=== PATIENT | female | born 1980 | race Caucasian/White ===

== ENCOUNTER 2017-11-06 20:35 | Inpatient (IN) | payer OTHER, SELFPAY ==
[2017-11-06 21:05] VITALS: BMI 27.6
[2017-11-06 21:09] LABS: Hematocrit 36.8 % (37-47); Hemoglobin 12.8 g/dl (12.0-15.0); Mean Corp Hgb Conc 34.8 g/gl (32-36); Mean Corpuscular Hgb 31.4 pg (27.0-32.0); Mean Corpuscular Volume 90.4 fL (81-99); Mean Platelet Vol. 11.1 fl (6.2-12.0); Platelet Count 154 K/mm3 (150-450); RBC Distribution Width CV 14.1 % (11.6-14.6); RBC Distribution Width SD 46.4 fl (35.1-43.9); Red Blood Count 4.07 M/mm3 (4.2-5.4); Scan Indicated on CBC? Y/N NO; White Blood Count 14.4 K/mm3 (4.4-11.0)
--- NOTE | 2017-11-06 21:24 | PCM.HP.OB ---
(1) Active labor at term Status: Acute (2) Post-dates Status: Acute History Date of Admission: 11/06/17 Gestational age: 40 History of this : 37 year old female single IUP at 40w2d EGA by 12 week U/S. Presented to L&D at 2030 this evening with contractions. Contractions started early afternoon after office visit and membrane stripping. Contractions increased in strength and came to unit. Denies any headache, visual changes, chest pain, shortness of breath, vaginal bleeding or leakage of fluid. OB history: Advanced maternal age, History of 3rd degree perineal laceration Allergies No Known Allergies Allergy (Verified 12/15/15 17:46) Current Medications Acetaminophen (Tylenol) 325 - 650 mg PO Q4H PRN PRN PRN Reason: PAIN OR FEVER >100.4F Al Hydroxide/Mg Hydroxide (Mylanta Ii) 15 - 30 ml PO Q4H PRN PRN PRN Reason: INDIGESTION Citric Acid/Sodium Citrate (Bicitra) 30 ml PO UD PRN Lactated Ringer's () 1,000 mls @ 50 mls/hr IV .Q20H CHARY Nalbuphine HCl (Nubain) 5 - 10 mg IV Q3H PRN PRN PRN Reason: PAIN (4-10/10) Ondansetron HCl (Zofran) 4 mg IV Q8H PRN PRN PRN Reason: NAUSEA Promethazine HCl (Phenergan (Ll)) 6.25 - 12.5 mg IV Q4H PRN PRN; Protocol PRN Reason: IF NAUSEA PERSISTS Sodium Chloride () 5 - 15 ml IV UD CHARY Smoking Status: Never smoker Alcohol: None Drug Use: none Review of Systems Constitutional: Denies: Chills, Fever, Weight Change Cardiovascular: Denies: Chest Pain, Palpitations Respiratory: Denies: Cough, Shortness of breath at rest, Sputum production Physical Exam Vitals: PN labs: RPR negative HIV negative O positive, antibody screen negative Rubella immune HBsAG negative GC/CT negative General: Alert, Oriented x3, No apparent distress Cardiovascular: Regular rate, Regular Rhythm, Normal S1, Normal S2, No murmurs Lungs: Clear to auscultation, No rhonchi, No wheeze Abdomen: Bowel Sounds Present, Gravid Extremities:: No edema Estimated gestational size: Appropriate for gestational size Presentation: Cephalic Cervix Dilation (cm): 5 - Exam per nursing staff. Station: -1 Effacement (%): 90 - IBOW Assessment/Plan Active and Suspected Problems Active labor at term (Acute) Post-dates (Acute) FHR moderate variability, accels, no decels, Category 1. [place]: q3-4min, moderate, lasting 60-120 seconds A: Active Labor of single IUP at 40w2d Post dates P: 1) Admit to L&D, routine orders. IV saline lock. Intermittent monitoring. 2) Expectant management. Would like natural childbirth 3) notified and updated on patient status in labor. Ayah Lynne CNM
[2017-11-06] MEDS: Lactated Ringers 1,000 ML 50 ML IV (22:55)
[2017-11-07] MEDS: Oxytocin 30 units/NS 500 ml 30 UNITS/500 ML IV.SOLN 334 UNITS IV (00:07)
--- NOTE | 2017-11-07 01:17 | PCM.OB.VAG ---
(1) Active labor at term Status: Acute (2) Post-dates Status: Acute Vaginal Delivery Amniotic Membrane Rupture Type: Artificial Amniotic Fluid Description: Clear Final DONTA: 11/04/17 Final DONTA Source: US <20 weeks Gestational age: 40 Weeks and 3 Days Date of Procedure: 11/07/17 Pre-Operative Diagnosis: Active Labor Post-Operative Diagnosis: NSVC Surgery/ Procedure Performed: Spontaneous Vaginal Delivery Type of Anesthesia: Local with 1% lidocaine Description of Procedure: Progressed to complete with strong urge to push. Vaginal bleeding with pushing due to laceration. of viable male infant over 2nd degree perineal laceration unmedicated. Apgars 8,9, weight pending. placed on maternal abdomen, spontaneous cry, mouth and nares wiped with towel. Pitocin started IVPB for active 3rd stage management. Placenta delivered with maternal effort, intact, 3 vessel cord. Perineum inspected with vaginal and rectal exam. Revealed 2nd degree perineal laceration. Repaired with 3.0 vicryl x2 with 1% Lidocaine. Well approximated with sutures, hemostasis achieved. Patient tolerated well. EBL 500ml. Planning to breast feed. Mom and baby stable. Family bonding well. notified of delivery. Presentation: Vertex, ASHER Placental Delivery Description: Spontaneous Placenta Disposition: [facility] Cord Vessel Description: 3 Vessels Cord Entanglement: None Estimated Blood Loss: 500ml Infant A gender: Male (1 minute): 8 (5 minute): 9 Laceration: Perineal Extension/lac, 2nd degree Medications given after delivery: IV Pitocin
[2017-11-07] MEDS: Oxytocin 30 units/NS 500 ml 30 UNITS/500 ML IV.SOLN 167 UNITS IV (01:30)
[2017-11-07] MEDS: Naproxen 250 MG Tablet PO (01:41)
[2017-11-07] MEDS: Senna/Docusate Sodium 1 Tablet PO (01:42)
[2017-11-07 04:00] VITALS: BP 122/65; PULSE 80; RESP 18; TEMP 37.1
[2017-11-07] MEDS: Cephalexin 500 MG Capsule PO ×3 (06:15→17:46)
[2017-11-07 08:00] VITALS: BP 109/68; PULSE 82; RESP 20; TEMP 37.1; O2SAT 96
[2017-11-07 12:00] VITALS: BP 117/68; PULSE 78; RESP 18; TEMP 37.2; O2SAT 97
--- NOTE | 2017-11-07 12:16 | PCM.PN.OB ---
Patient Problems: Active and Suspected Problems Active labor at term (Acute) Post-dates (Acute) Subjective: pt seen at bedside, doing well. pt reports good pain control. lochia mild. Urinating without difficulty. Breast feeding well. - Physical Exam General: Alert, Oriented x3 Abdomen: Soft, Non Tender, Non-Distended, - - fundus firm Extremities: No Calf Tenderness Vital Signs Temp Pulse Resp BP Pulse Ox 98.9 F 78 18 117/68 97 11/07/17 12:00 11/07/17 12:00 11/07/17 12:00 11/07/17 12:00 11/07/17 12:00 Oxygen Delivery Method Room Air Weight: 82.554 kg Body Mass Index (BMI) 27.6 Intake and Output for Last 24 Hours 11/05/17 11/06/17 11/07/17 23:59 23:59 23:59 Intake Total 1700 / 1700 Output Total 150 / 150 700 / 700 Balance -150 / -150 1000 / 1000 Laboratory Tests Past 24 Hrs 11/06/17 11/06/17 20:54 20:54 WBC 14.4 H RBC 4.07 L Hgb 12.8 Hct 36.8 L MCV 90.4 MCH 31.4 MCHC 34.8 RDW 14.1 RDW Differential 46.4 H Plt Count 154 MPV 11.1 Blood Type O POSITIVE Antibody Screen NEGATIVE Assessment/Plan Active and Suspected Problems Active labor at term (Acute) Post-dates (Acute) PPD#1, doing well routine care pain mgmt
[2017-11-07 14:54] LABS: Absolute Lymphocyte Count 1.59 X10^3/ul (0.83-4.51); Absolute Neutrophil Count 12.3 X10^3/uL (2.0-7.7); Basophil# 0.01 X10^3/uL; Basophil% 0.1 % (0-1); Eosinophil# 0.01 X10^3/uL; Eosinophils% 0.1 % (0-5); Hematocrit 26.7 % (37-47); Hemoglobin 9.4 g/dl (12.0-15.0); Lymphocyte # 1.59 X10^3/ul (4.0); Lymphocyte % 10.6 % (19-41); Mean Corp Hgb Conc 35.2 g/gl (32-36); Mean Corpuscular Hgb 32.3 pg (27.0-32.0); Mean Corpuscular Volume 91.8 fL (81-99); Mean Platelet Vol. 11.4 fl (6.2-12.0); Monocyte# 0.98 X10^3/uL; Monocyte% 6.6 % (0-10); Neutrophil # 12.31 X10^3/uL (2.7-7.7); Neutrophil % 82.2 % (47-70); Platelet Count 149 K/mm3 (150-450); RBC Distribution Width CV 13.9 % (11.6-14.6); RBC Distribution Width SD 44.3 fl (35.1-43.9); Red Blood Count 2.91 M/mm3 (4.2-5.4)
[2017-11-07 14:55] LABS: POSITIVE COUNT NO; POSITIVE DIFFERENTIAL NO; POSITIVE MORPHOLOGY NO
[2017-11-07 16:00] VITALS: BP 115/67; PULSE 89; RESP 14; TEMP 37.1; O2SAT 97
[2017-11-07 20:59] VITALS: BP 126/61; PULSE 78; RESP 18; TEMP 36.7
[2017-11-08] MEDS: Cephalexin 500 MG Capsule PO ×2 (00:32→06:07)
[2017-11-08 02:20] VITALS: BP 107/70; PULSE 96; RESP 18; TEMP 36.4
--- NOTE | 2017-11-08 09:00 | DCINST_ITS ---
Discharge Diet: No Restrictions Discharge Activity: Return to Normal Activity, May not drive while taking narcotic pain medications., May Shower May resume sexual activity in: 4-6 weeks Additional Activity Instructions:: Nothing in the vagina for 4-6 weeks. You may return to work/school in 6 weeks. Call your doctor if your incision/area has: Continuous Slow Oozing, Sudden Increased Bleeding, Increased Pain/ Swelling, Increased Redness, Foul Smelling Discharge Call your doctor if you observe: Fever of 101 or Higher, Inability to urinate, Inability to have a bowel movement, Using more than one pad per hour, Uncontrolled pain Additional Instructions: If you experience any of the following, contact your healthcare provider. * Bleeding that soaks a pad every hour for 2 hours * Fever 100.4 or higher * Unrelieved incision or abdominal pain * Swelling, redness, discharge or bleeding from your incision or episiotomy site * Your incision begins to separate * Problems urinating (including inability to urinate or burning while urinating) . * Visual changes * Severe headache * Flu-like symptoms * Pain or redness in one of both of your breasts * Pain, warmth, tenderness or swelling in your legs, especially the calf area * Frequent nausea and vomiting * Symptoms of depression or anxiety If you experience any of the following, call 911 or go to the nearest Emergency Room. * Chest pain * Problems breathing * Seizure activity * Partial or complete paralysis of a body part, slurred speech, weakness or drooping of the face, or a sudden inability to walk or hold your balance Allergies/Adverse Reactions: Allergies No Known Allergies Allergy (Verified 11/07/17 01:19) Medications to take at Discharge Vits [Prenatabs FA ] 1 tablet PO DAILY 12/15/15 Cephalexin [Keflex] 500 mg PO 4X/DAY 11/07/17 Acetaminophen [Tylenol] 1,000 mg PO Q8H PRN PRN tablet 11/08/17 Naproxen [Naprosyn] 250 - 500 mg PO Q8H PRN PRN tablet 11/08/17 Senna/Docusate Sodium [Senokot-S] 1 - 2 tablet PO DAILY PRN PRN tablet When: Call to make an appointment with your doctor in 6 weeks. If you had elevated Blood Pressure or 4th degree laceration you will need to be seen in 2 weeks. Primary Care Physician: Care Physician,No Primary [Primary Care Provider] -
--- NOTE | 2017-11-08 09:00 | PCM.PN.BLA ---
Progress Note S: Patient sitting up in bed, and son at bedside doing [id number]. Patient denies any complaints or issues. O: VSS, Afebrile Nipples without cracks or blisters, no erythema noted Abdomen NT x 4 quadrants, FF @ 2FB below umbilicus +2/4 reflexes in LE, no edema negative calf tenderness to palpation perineum well approximated scant rubra lochia A: 37 y/o s/p , PPD #1, Normal PP Course P: 1) Discharge patient to home pending discharge 2) Anticipatory health PP teaching done 3) RTC in 6 weeks for PP visit with [facility] Brielle Valdez CNM
--- NOTE | 2017-11-08 09:04 | PN_ITS ---
Progress Note S: Patient sitting up in bed, and son at bedside doing skin-to- skin. Patient denies any complaints or issues. O: VSS, Afebrile Nipples without cracks or blisters, no erythema noted Abdomen NT x 4 quadrants, FF @ 2FB below umbilicus +2/4 reflexes in LE, no edema negative calf tenderness to palpation perineum well approximated scant rubra lochia A: 37 y/o s/p , PPD #1, Normal PP Course P: 1) Discharge patient to home pending discharge 2) Anticipatory health PP teaching done 3) RTC in 6 weeks for PP visit with [facility] Brielle Valdez CNM
[2017-11-08 11:00] VITALS: BP 116/72; PULSE 83; RESP 18; TEMP 36.7
== END 2017-11-08 11:00 | disposition home or self-care (01) | DRG 775 ==
PROVIDERS: Advanced Practice Midwife; Admitting Provider Obstetrics & Gynecology; Visit Provider Obstetrics & Gynecology
DX: O70.1 Second degree perineal laceration during delivery (principal); O48.0 Post-term pregnancy; Z3A.40 40 weeks gestation of pregnancy; Z37.0 Single live birth
CPT/HCPCS: 59025; 59050; 85025; 85027; 86850; 86900; 99218; J7120; G0378

== ENCOUNTER 2020-06-14 07:10 | Inpatient (IN) | payer OTHER, SELFPAY ==
[2020-06-14] VITALS (21 sets, daily range): BP systolic 92–147; BP diastolic 51–77; PULSE 63–97; TEMP 36.6–37.1; O2SAT 98–100; BMI 27.4
[2020-06-14] MEDS: Lactated Ringers 1,000 ML 50 ML IV (08:19)
[2020-06-14] MEDS: Oxytocin 30 units/NS 500 ml 30 UNITS/500 ML IV.SOLN IV (08:20)
[2020-06-14 08:35] LABS: Absolute Lymphocyte Count 1.24 X10^3/uL (0.83-4.51); Absolute Neutrophil Count 5.8 X10^3/uL (2.0-7.7); Basophil# 0.02 X10^3/uL; Basophil% 0.3 % (0-1); Eosinophil# 0.04 X10^3/uL; Eosinophils% 0.5 % (0-5); Hematocrit 32.1 % (37-47); Hemoglobin 10.9 g/dL (12.0-15.0); Lymphocyte # 1.24 X10^3/ul (4.0); Lymphocyte % 16.4 % (19-41); Mean Corpuscular Volume 91.2 fL (81-99); Mean Platelet Vol. 11.4 fl (6.2-12.0); Monocyte% 5.3 % (0-10); NRBC Flagged by Analyzer 0 % (0-5); Neutrophil # 5.83 X10^3/uL (2.7-7.7); Neutrophil % 77.1 % (47-70); Platelet Count 150 K/mm3 (150-450); RBC Distribution Width CV 14.7 % (11.6-14.6); RBC Distribution Width SD 48.3 fl (35.1-43.9); Red Blood Count 3.52 M/mm3 (4.2-5.4); White Blood Count 7.6 K/mm3 (4.4-11.0)
[2020-06-14] MEDS: Lactated Ringers 500 ML 999 ML IV (12:50)
--- NOTE | 2020-06-14 14:45 | PCM.HP.OB ---
- Problem List (1) Advanced maternal age (AMA), 40 years or greater Status: Acute (2) Encounter for induction of labor Status: Acute (3) Positive GBS test Status: Acute History Date of Admission: 11/06/17 Final DONTA: 06/21/20 Final DONTA Source: US <20 weeks Gestational age: 39 Weeks and 0 Days History of this : This is a 40 year-old, G [3], P [2003], at 39 weeks gestational age. Presents for induction of labor due to AMA. Allergies No Known Allergies Allergy (Verified 11/07/17 01:19) Home Medications: Home Medications Vits [Prenatabs FA ] 1 tablet PO DAILY 12/15/15 Cephalexin [Keflex] 500 mg PO 4X/DAY 11/07/17 Acetaminophen [Tylenol] 1,000 mg PO Q8H PRN PRN tablet 11/08/17 Naproxen [Naprosyn] 250 - 500 mg PO Q8H PRN PRN tablet 11/08/17 Senna/Docusate Sodium [Senokot-S] 1 - 2 tablet PO DAILY PRN PRN tablet 11/08/17 Smoking Status: Never smoker Alcohol: None Number of Fetus(es): 1 NST - FHR Rate Baby A Baseline: 145 Variability:: Moderate Accelerations:: 15 x 15 Decelerations:: None FHR Category:: Category I Uterine Activity:: every 2-4 minutes, moderate History Past Pregnancies: Past Pregnancies Delivery Date Name GA/ Weeks Outcome Route Wt Infant Sex Labor Length Anesthesia Delivery Location Provider FOB Labs: [facility] Labs & Results 06/14/20 06/14/20 08:00 08:00 WBC 7.6 RBC 3.52 L Hgb 10.9 L Hct 32.1 L MCV 91.2 MCH 31.0 MCHC 34.0 RDW Std Deviation 48.3 H RDW Coeff of Molina 14.7 H Plt Count 150 MPV 11.4 Immature Gran % (Auto) 0.400 Neut % (Auto) 77.1 H Lymph % (Auto) 16.4 L [place] % (Auto) 5.3 Eos % (Auto) 0.5 Baso % (Auto) 0.3 Absolute Neuts (auto) 5.8 Absolute Lymphs (auto) 1.24 Nucleated RBC % 0 Blood Type O POSITIVE Antibody Screen NEGATIVE Course Did the patient receive Yes care? Labs Blood Type: O RH: POSITIVE RPR/VDRL/Syphilis Nonreactive Rubella status Immune HbSAg Negative Date Done: 03/27/20 Chlamydia Negative Gonorrhea Negative HIV/AIDS Non-Reactive Group B Strep: Positive Current Obstetrical History Gestational Diabetes No Incompetent Cervix No Infertility No IUGR No Macrosomia No Hypertension/Pre-eclampsia No Placenta Previa/Abruption No PTL/PROM No Uterine anomaly No Oligohydramnios No Polyhydramnios No Multiple gestation No Past Medical History Asthma No Diabetes No Heart disease No Mitral valve prolapse No Neurologic/Seizure disorder/ No Migraines Kidney disease No Liver disease No Varicosities No Clotting disorders/Hx of DVT No Thyroid Dysfunction No Other medical diseases No Psychiatric disorders No Major trauma No Abnormal PAP smear No Sleep apnea No Mammogram in the last 2 years No Social History Marital Status: Alleged father Wes Curry Hx Smoking No Smoking Status Never smoker Expected Infant Delivery Method: Spontaneous Vaginal Review of Systems Constitutional: Denies: Chills, Fever, Weight Change HEENT: Denies: Head Aches, Sinus Congestion, Sinus Drainage Cardiovascular: Denies: Chest Pain, Palpitations Respiratory: Denies: Cough, Shortness of breath at rest, Sputum production Gastrointestinal: Denies: Abdominal Pain, Nausea, Vomiting Genitourinary: Denies: Dysuria Musculoskeletal: Denies: Joint Pain, Joint Tenderness Skin: Denies: Rash, Wounds Neurological: Denies: Numbness, Tingling, Focal weakness Psychiatric: Denies: Anxiety, Depression, Homicidal Ideations, Suicidal Ideations Hematologic/ Lymphatic: Denies: Easy Bruising, Easy Bleeding Physical Exam Vitals: Vital Signs Temp Pulse BP 98.7 F 67 147/68 H 06/14/20 07:33 06/14/20 14:15 06/14/20 14:15 General: Alert, Oriented x3, Cooperative HEENT: Normocephalic Cardiovascular: Regular rate, Regular Rhythm, No murmurs Lungs: Clear to auscultation, Normal air movement, No rhonchi, No wheeze Abdomen: Gravid Extremities:: No edema Neurological: Deep Tendon Reflexes 2+/4 and Symmetrical [employer]: Normal external genitalia Estimated gestational size: Appropriate for gestational size Presentation: Cephalic Cervix Dilation (cm): 4.5 - AROM for moderate amount of clear fluid. Station: -1 Effacement (%): 80 Assessment/Plan All Active Problems Advanced maternal age (AMA), 40 years or greater (Acute) Encounter for induction of labor (Acute) Positive GBS test (Acute) Post-dates (Acute) Active labor at term (Acute) This is a 40 year-old, G [3], P [2003], at 39 weeks gestational age. A:Induction of labor for AMA Category 1 FHT P: 1) Admit to labor and delivery 2) IV and routine labs. 3) Pitocin for induction of labor 4) Requesting unmedicated , offered bedside labor support. Positional changes 5) AROM 6) GBS positive, GBS prophylaxis 7) collaborative physician and notified of patient status.
[2020-06-14] MEDS: Oxytocin 30 units/NS 500 ml 30 UNITS/500 ML IV.SOLN 334 UNITS IV (17:18)
--- NOTE | 2020-06-14 17:45 | PCM.OPRPT ---
Problem List (1) Advanced maternal age (AMA), 40 years or greater Status: Acute (2) Encounter for induction of labor Status: Acute (3) Positive GBS test Status: Acute (4) Vaginal delivery Status: Acute (5) Second degree perineal laceration Status: Acute Vaginal Delivery Maternal Presentation: Medically Indicated Induction Method of Induction: Pitocin Medical Reason for Induction: - - AMA Amniotic Membrane Rupture Type: Spontaneous Amniotic Fluid Description: Clear Final DONTA: 06/21/20 Final DONTA Source: US <20 weeks Gestational age: 39 Weeks and 0 Days Date of Procedure: 06/14/20 Pre-Operative Diagnosis: Induction of Labor for AMA Post-Operative Diagnosis: Surgery/ Procedure Performed: Spontaneous Vaginal Delivery Type of Anesthesia: Epidural, Local with 1% lidocaine Description of Procedure: Progressed to complete with urge to push after epidural placement. of viable male over 2nd degree perineal laceration. APGARS 8, 9, weight pending. head delivered with body forthcoming and placed on maternal abdomen. Mouth and nares suctioned for secretions, strong cry. Cord clamped and cut after pulsations ceased by FOB. Pitocin started for active 3rd stage management. Placenta delivered intact via nishi with 3 vessel cord. Perineum inspected and revealed 2nd degree perineal laceration. Repaired under epidural analgesia and lidocaine with 3.0 vicryl rapide. Well approximated and hemostasis achieved. Rectal exam completed and intact. Fundus firm, vaginal sweep completed and sponge and instrument count correct. EBL 400ml. Mom and baby stable. Planning to breastfeed. Family bonding well. notified of delivery. Presentation: Vertex Placental Delivery Description: Spontaneous Placenta Disposition: [facility] Cord Vessel Description: 3 Vessels Cord Entanglement: None Estimated Blood Loss: 400 ml A gender: Male (1 minute): 8 (5 minute): 9 Episiotomy Description: None Laceration: 2nd degree - perineal laceration Medications given after delivery: IV Pitocin Complications: None
[2020-06-14] MEDS: Ibuprofen 600 MG Tablet PO (18:39)
[2020-06-15 00:30] VITALS: BP 106/55; PULSE 74; RESP 16; TEMP 36.4
[2020-06-15 03:25] VITALS: BP 121/49; PULSE 71; RESP 16; TEMP 37.2
[2020-06-15] MEDS: Ibuprofen 600 MG Tablet PO ×2 (03:38→09:50)
[2020-06-15 06:08] LABS: Hematocrit 26.6 % (37-47); Mean Corp Hgb Conc 33.8 g/dL (32-36); Mean Corpuscular Hgb 31.3 pg (27.0-32.0); Mean Corpuscular Volume 92.4 fL (81-99); Mean Platelet Vol. 11.3 fl (6.2-12.0); Platelet Count 112 K/mm3 (150-450); RBC Distribution Width CV 14.6 % (11.6-14.6); RBC Distribution Width SD 48.3 fl (35.1-43.9); Red Blood Count 2.88 M/mm3 (4.2-5.4); White Blood Count 9.1 K/mm3 (4.4-11.0)
--- NOTE | 2020-06-15 08:48 | PCM.PN.OB ---
Patient Problems: Active and Suspected Problems Advanced maternal age (AMA), 40 years or greater (Acute) Encounter for induction of labor (Acute) Positive GBS test (Acute) Vaginal delivery (Acute) Second degree perineal laceration (Acute) Subjective: Pain well controlled, average lochia. No complaints this morning - Physical Exam Vitals/I&O's: Vital Signs Temp Pulse Resp BP Pulse Ox 98.9 F 71 16 121/49 H 98 06/15/20 03:25 06/15/20 03:25 06/15/20 03:25 06/15/20 03:25 06/14/20 19:27 Oxygen Delivery Method Room Air Weight: 81.817 kg Body Mass Index (BMI) 27.4 Intake and Output for Last 24 Hours 06/13/20 06/14/20 06/15/20 23:59 23:59 23:59 Intake Total 1619.44 / 1619.44 Output Total 200 / 200 Balance 1419.44 / 1419.44 General: Alert, Cooperative, No apparent distress Laboratory Results 06/14/20 08:00: Blood Type O POSITIVE, Antibody Screen NEGATIVE 06/15/20 05:50: WBC 9.1, RBC 2.88 L, Hgb 9.0 L, Hct 26.6 L, MCV 92.4, MCH 31.3, MCHC 33.8, RDW Std Deviation 48.3 H, RDW Coeff of Molina 14.6, Plt Count 112 L, MPV 11.3 Current Medications Acetaminophen (Tylenol) 1,000 mg PO Q8H PRN PRN PRN Reason: Pain Score 1-3/10 Bisacodyl (Dulcolax) 10 mg RECTAL UD PRN PRN Reason: If no BM Dibucaine (Dibucaine) 1 applic TOPICAL TID PRN PRN; Protocol PRN Reason: Discomfort Hydrocortisone (Hytone) 1 applic TOPICAL TID PRN PRN; Protocol PRN Reason: Discomfort Ibuprofen (Motrin) 600 mg PO Q6H PRN PRN PRN Reason: Pain Score 1-3/10 Last Admin: 06/15/20 03:38 Dose: 600 mg Documented by: Methylergonovine Maleate (Methergine) 0.2 mg IM X1 PRN PRN Reason: Excess bleeding/uterine atony Ondansetron HCl (Zofran) 4 mg IV Q4H PRN PRN PRN Reason: Nausea Senna/Docusate Sodium (Senokot-S, Candace-Colace) 1 - 2 tablet PO DAILY PRN PRN PRN Reason: Constipation Simethicone (Mylicon) 80 mg PO PCHS PRN PRN Reason: Indigestion/Stomach pain Sodium Chloride () 5 - 15 ml IV UD PRN PRN Reason: SALINE FLUSH Medical Necessity - Tobacco Use Smoking Status: Never smoker Assessment/Plan All Active Problems Advanced maternal age (AMA), 40 years or greater (Acute) Encounter for induction of labor (Acute) Positive GBS test (Acute) Vaginal delivery (Acute) Second degree perineal laceration (Acute) Post-dates (Acute) Active labor at term (Acute) day #1 status post vaginal delivery. and patient are doing well. Patient desires discharge home later this evening if okay with pediatrics. Declines prescriptions. May use [id number] medications as needed for pain control
--- NOTE | 2020-06-15 08:49 | DCINST_ITS ---
Discharge Diet: No Restrictions Discharge Activity: Return to Normal Activity, May not drive while taking narcotic pain medications., May Shower May resume sexual activity in: 4-6 weeks Additional Activity Instructions:: Nothing in the vagina for 4-6 weeks. You may return to work/school in 6 weeks. Call your doctor if your incision/area has: Continuous Slow Oozing, Sudden Increased Bleeding, Increased Pain/ Swelling, Increased Redness, Foul Smelling Discharge Additional Instructions: If you experience any of the following, contact your healthcare provider. * Bleeding that soaks a pad every hour for 2 hours * Fever 100.4 or higher * Unrelieved incision or abdominal pain * Swelling, redness, discharge or bleeding from your incision or episiotomy site * Your incision begins to separate * Problems urinating (including inability to urinate or burning while urinating). * Visual changes * Severe headache * Flu-like symptoms * Pain or redness in one of both of your breasts * Pain, warmth, tenderness or swelling in your legs, especially the calf area * Frequent nausea and vomiting * Symptoms of depression or anxiety If you experience any of the following, call 911 or go to the nearest Emergency Room. * Chest pain * Problems breathing * Seizure activity * Partial or complete paralysis of a body part, slurred speech, weakness or drooping of the face, or a sudden inability to walk or hold your balance Allergies/Adverse Reactions: Allergies No Known Allergies Allergy (Verified 11/07/17 01:19) Medications to take at Discharge Vits [Prenatabs FA ] 1 tablet PO DAILY 12/15/15 Please Follow Up With: Ayah Lynne, [facility] - [phone] When: Call to make an appointment with your provider's office in 1-2 weeks (virtual) and 6 weeks or as needed Primary Care Physician: Care Physician,No Primary [Primary Care Provider] - Test Results: Test results from this visit will be discussed in further detail at your follow- up appointment, if applicable.
--- NOTE | 2020-06-15 08:49 | PCM.DCVAG ---
Discharge Diet: No Restrictions Discharge Activity: Return to Normal Activity, May not drive while taking narcotic pain medications., May Shower May resume sexual activity in: 4-6 weeks Additional Activity Instructions:: Nothing in the vagina for 4-6 weeks. You may return to work/school in 6 weeks. Call your doctor if your incision/area has: Continuous Slow Oozing, Sudden Increased Bleeding, Increased Pain/ Swelling, Increased Redness, Foul Smelling Discharge Additional Instructions: If you experience any of the following, contact your healthcare provider. Bleeding that soaks a pad every hour for 2 hours Fever 100.4 or higher Unrelieved incision or abdominal pain Swelling, redness, discharge or bleeding from your incision or episiotomy site Your incision begins to separate Problems urinating (including inability to urinate or burning while urinating). Visual changes Severe headache Flu-like symptoms Pain or redness in one of both of your breasts Pain, warmth, tenderness or swelling in your legs, especially the calf area Frequent nausea and vomiting Symptoms of depression or anxiety If you experience any of the following, call 911 or go to the nearest Emergency Room. Chest pain Problems breathing Seizure activity Partial or complete paralysis of a body part, slurred speech, weakness or drooping of the face, or a sudden inability to walk or hold your balance Allergies/Adverse Reactions: Allergies No Known Allergies Allergy (Verified 11/07/17 01:19) Medications to take at Discharge Vits [Prenatabs FA ] 1 tablet PO DAILY 12/15/15 Please Follow Up With: Ayha Lynne, [facility] - [phone] When: Call to make an appointment with your provider's office in 1-2 weeks (virtual) and 6 weeks or as needed Primary Care Physician: Care Physician,No Primary [Primary Care Provider] - Test Results: Test results from this visit will be discussed in further detail at your follow-up appointment, if applicable.
[2020-06-15 09:32] VITALS: BP 125/72; PULSE 78; RESP 16; TEMP 37.8
[2020-06-15 10:30] VITALS: TEMP 36.6
[2020-06-15 13:20] VITALS: BP 119/72; PULSE 80; RESP 16; TEMP 37.3
[2020-06-15 17:20] VITALS: BP 128/66; PULSE 79; RESP 16; TEMP 37
== END 2020-06-15 19:38 | disposition home or self-care (01) | DRG 806 ==
PROVIDERS: Admitting Provider Advanced Practice Midwife; Visit Provider Advanced Practice Midwife
DX: O75.9 Complication of labor and delivery, unspecified (principal); O98.82 Other maternal infectious and parasitic diseases complicating childbirth; Z37.0 Single live birth; O70.1 Second degree perineal laceration during delivery; B95.1 Streptococcus, group B, as the cause of diseases classified elsewhere; Z3A.39 39 weeks gestation of pregnancy
CPT/HCPCS: 59025; 59050; 85025; 85027; 86850; 86900; 86901; 99218; J7120; G0378

== ENCOUNTER 2025-04-15 07:27 | Day surgery (SDC) | payer BC, SELFPAY ==
[2025-04-15] VITALS (9 sets, daily range): BP systolic 95–132; BP diastolic 59–73; PULSE 53–88; RESP 16–18; TEMP 36.8–37.6; O2SAT 98–99; BMI 26.4
--- OUTSIDE RECORDS SUMMARY | 2025-04-15 07:50 | XMS RPT_ITS | CCD ---
Author Organization [facility] Care Team Providers Care Air Compressor Operator Name Role Phone Unavailable Primary Care Provider JOANNA Herzog Attending Unavailable JORGE, DR. JOANNA ROQUE Primary Care Physician DR. JOANNA PATEL Attending DR. JOANNA Tirado Primary Care UnavailHubert Vazquez Attending Unavailable Care Physician, No Primary Referring Unava ilable Care Physician, No Primary Primary Care Unava ilable Allergies Allergy Classification Reported Allergen(s) Allergy Type Date of Onset Reaction(s) Facility (2 sources) Cat; Translations: [CATS] Propensity to adverse reactions 04-14-2008 Itching [facility] Work Phone: Medications Current Medications Medication Drug Class(es) Dates Sig (Normalized) Sig (Original) diaphragms, contoured (CAYA CONTOURED) 65-80 mm dprh (2 sources) Start: 05-03-2024 diaphragms, contoured (CAYA CONTOURED) 65-80 mm dprh Use 1 Device vaginally as needed. 1 Each 0 05/03/2024 Active Start: 09-29-2020 End: 05-03-2024 diaphragms, contoured (CAYA CONTOURED) 65-80 mm dprh Use 1 Device vaginally as needed. 1 Device 0 09/29/2020 05/03/2024 Discontinued Zspiltmi-Hd-Uqi-Fe- FA ( VITAMIN) tab (1 source) take 1 tablet by mouth once Pvmuohub-Bw-Age-Fe-FA ( VITAMIN) tab Take 1 tablet by mouth. 0 Active Problems Active Problems Problem Classification Problem Date Documented Date Episodic/Chronic Immunizations and screening for infectious disease (4 sources) Patient encounter status; Translations: [Encounter for screening for human papillomavirus (HPV)] Onset: 05-03-2024 4 Episodic Other screening for suspected conditions (not mental disorders or infectious disease) (5 sources) Cancer cervix screening status; Translations: [Encounter for screening for malignant neoplasm of cervix] Onset: 05-03-2024 05-03-2024 Episodic Past or Other Problems Problem Classification Problem Date Documented Da te Episodic/Chronic Anal and rectal conditions (1 source) Anal fistula; Translations: [Anal fistula] Onset: 12-06-2018 11-22-2019 Episodic Bacterial infection; unspecified site (1 source) Bacteria present; Translations: [Streptococcus, group B, as the cause of diseases classified elsewhere] Onset: 06-01-2020 Resolved: 07-27-2020 07-27-2020 Episodic Diabetes or abnormal glucose tolerance complicating ; childbirth; or the puerperium (1 source) Abnormal glucose level; Translations: [Abnormal glucose complicating ] Onset: 03-30-2020 Resolved: 07-27-2020 07-27-2020 Episodic OB-related trauma to perineum and vulva (1 source) Third degree perineal laceration; Translations: [Third degree perineal laceration during delivery, unspecified] Onset: 04-20-2017 Resolved: 11-22-2019 11-22-2019 Episodic Other and unspecified benign neoplasm (1 source) Benign neoplasm, unspecified site; Translations: [Benign neoplasm of unspecified site] Onset: 07-10-2018 11-22-2019 Episodic Other complications of (2 sources) Multigravida of advanced maternal age; Translations: [Supervision of elderly multigravida, unspecified trimester] Onset: 05-13-2015 Resolved: 07-27-2020 12-06-2018 Episodic Other complications of (2 sources) High risk ; Translations: [Supervision of high risk , unspecified, second trimester] Onset: 07-08-2015 Resolved: 01-20-2016 10-11-2021 Episodic Other complications of (1 source) Elderly primigravida; Translations: [Supervision of elderly primigravida, unspecified trimester] Onset: 11-04-2015 Resolved: 01-20-2016 01-20-2016 Episodic Other complications of (1 source) Excessive weight gain in , third trimester; Translations: [Edema or excessive weight gain in , without mention of hypertension, antepartum condition or complication] Onset: 10-30-2017 Resolved: 11-22-2019 11-22-2019 Episodic Other complications of (1 source) Finding of pattern of ; Translations: [Supervision of other high risk pregnancies, unspecified trimester] Onset: 12-06-2018 Resolved: 11-22-2019 11-22-2019 Episodic Other complications of (1 source) History of third degree perineal laceration; Translations: [Supervision of with other poor reproductive or obstetric history, unspecified trimester] Onset: 12-06-2018 Resolved: 07-27-2020 07-27-2020 Episodic Other connective tissue disease (1 source) Pain in limb; Translations: [Pain in unspecified limb] Onset: 04-14-2008 Resolved: 10-21-2015 10-21-2015 Episodic Residual codes; unclassified (1 source) FH: Congenital anomaly; Translations: [Family history of other congenital malformations, deformations and chromosomal abnormalities] Onset: 04-20-2017 Resolved: 07-27-2020 07-27-2020 Episodic Superficial injury; contusion (1 source) Contusion of foot; Translations: [Contusion of unspecified foot, initial encounter] Onset: 04-14-2008 Resolved: 10-21-2015 10-21-2015 Episodic Results Test Name Value Interpretation Reference Range Facil ity MA MAMMOGRAM SCREENING BILAT ERAL W/TOMOon 02-25-2025 MA MAMMOGRAM SCREENING BILATERAL W/MADHURI ORIGINAL FROM: [place] [address] PROCEDURE FOR: CLAUDIA ANGELES [address] [place] [address] Home: PID#: [id number] Exam#: [id number] : 1980 Age: 44 TO: JOANNA PATEL NP [facility], [place] [phone] EXAMINATION: SCREENING DIGITAL BILATERAL MAMMOGRAM WITH TOMOSYNTHESIS, 02/19/2025 11:25 am TECHNIQUE: Screening mammography of the bilateral breasts was performed with tomosynthesis. 2D standard and 3D tomosynthesis combination imaging performed through both breasts in the MLO and CC projection. Computer aided detection was utilized in the interpretation of this exam. COMPARISON: None. Baseline exam. HISTORY: Breast cancer screening. FINDINGS: BREAST DENSITY: There are scattered areas of fibroglandular density. There is no suspicious mass, architectural distortion or microcalcification. Fibroglandular pattern is stable. IMPRESSION: No mammographic evidence of malignancy. Continued screening with annual mammograms is recommended. Gilbert Sanchez risk calculations, generated with the history provided, report this patient's 10 year risk and lifetime risk for developing breast cancer at 3.1% and 16.6%, respectively. Based on this assessment tool, if the patient's calculated lifetime risk is below 20%, then the patient is considered at average risk for developing breast cancer. If the patient's calculated lifetime risk is at or above 20%, then the patient is considered high risk for developing breast cancer and may be a candidate for supplemental breast MRI screening in addition to annual mammographic screening per the [place] [employer]. BIRADS: MAMMOGRAM BI-RADS: 1: Negative RECALL: 1 year screening RECALL TYPE: mammo LETTER SENT: Normal BI-RADS 1 and 2 Interpreted by: Jaclyn Brooks Preliminary Report By: Jaclyn Brooks Electronically signed By Jaclyn Brooks Dictated Date: 02/25/2025 3:37:40 PM Prelim Date: 02/25/2025 3:39:14 PM Sign Date: 02/25/2025 3:39:14 PM Ordering Provider: JOANNA PATEL Waterproofer Helper: KAITLYNN TABARES(José Luis)(M)(CT) letter sent: Normal BI-RADS 1 and 2 Mammogram BI-RADS: 1 Negative Normal [facility] CNOVon 05-03-2024 CNOV Office Visit (OBGYWM ) CLAUDIA REYNOSO ([id number]) 1980 F Date Time Provider Department 05/03/24 3:10 PM JOANNA PATEL OBQUENTIN During your visit today, we recorded the following information about you: Blood pressure Weight Height Last Period 112 81.2 kg 1.727 m 04/29/24 Joanna Patel MD 05/03/2024 3:50 PM Signed Claudia is a 44 year old who presents for an annual gynecologic exam without complaints. Menses: cycles every 28-30 days and 7 days of flow. Will occasionally skip a month. 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 History Comments: Sexual Activity: Yes; Male Contraception: Diaphragm PAST MEDICAL HISTORY Diagnosis Date Cystic fibrosis screening 2014 neg antepartum CF screen fracture 5 fractured tibia, playground accident(pt unsure which leg) PAST SURGICAL HISTORY Procedure Laterality Date FISTULECTOMY/FISTULOTO MY SUBMUSCULAR 08/08/2018 anal fistulectomy w/seton drain FISTULECTOMY/FISTULOTO MY SUBMUSCULAR 03/06/2019 FISTULECTOMY/FISTULOTO MY SUBMUSCULAR 05/29/2019 RPR 1ST INGUN HRNA AGE 5 YRS/> REDUCIBLE 1989 Hernia repair, inguinal, right FAMILY HISTORY Problem Relation Age of Onset Arthritis Mother Hypertension Father Ischemic Heart Disease Father other (borderline DM2) Father No Known Problems Sister No Known Problems Brother Alzheimer's Disease Maternal Grandmother Stroke Maternal Grandfather Arthritis Paternal Grandmother Heart Paternal Grandfather No Known Problems Son No Known Problems Son SOCIAL HISTORY Social History Tobacco Use Smoking status: Never Smokeless tobacco: Never Vaping Use Vaping Use: Never used Substance Use Topics Alcohol use: Yes Alcohol/week: 2.3 standard drinks of alcohol Types: 1 Cans of Beer (12oz), 1 Mixed Drinks per week Comment: 2-3 drinks a week, not while Drug use: No REVIEW OF SYSTEMS Abdomen: No abdominal pain, nausea, vomiting, diarrhea, or constipation. No bloating, early satiety, indigestion, or increased flatulence. Bladder: No dysuria, gross hematuria, urinary frequency, urinary urgency, or incontinence. Breast: No breast lumps, nipple d/c, overlying skin changes, redness or skin retraction. Allergies and current medication updated:Yes EXAM: BP 112/70 Ht 5' 8 (1.73m) Wt 179 lb (81.2kg) LMP 04/29/2024 BMI 27.22 kg/(m2). GENERAL: pleasant, female in no apparent distress BREAST: soft, non-tender, symmetric, no dominant mass, normal nipple-areolar complex, no lymphadenopathy, and no nipple discharge CHEST: Normal inspiratory effort ABDOMEN: soft, non-tender, and no masses PELVIC: external genitalia normal, normal Bartholin's glands, urethra, Cherry Log's glands, no vulvar lesions, no cervical lesions, good vaginal support, physiologic discharge present, normal appearing perineal body and perianal region BIMANUAL: uterus normal size, shape and consistency, no adnexal masses, and non-tender RECTOVAGINAL: deferred. NEURO: alert and oriented x3,exam grossly non-focal EXTREMITIES: normal ASSESSMENT/PLAN: 1) Health maintenance: Pap done with HPV. Mammogram ordered. Nutrition, exercise and routine health maintenance exams reviewed. Calcium/Vitamin D supplementation information provided. Colon cancer screening: colonoscopy ordered 2) Contraception: diaphragm. Contraceptive options reviewed and information provided. 3) Follow up one year or sooner as needed MD Jorge Patel Karmon, MD 05/03/2024 3:28 PM Addendum Bowel Preparation Instructions for: Miralax-Gatorade Preparations IF YOU DO NOT FOLLOW THESE DIRECTIONS, YOUR COLONOSCOPY WILL BE CANCELLED. Javier Instructions: Your bowel must be empty so that your doctor can clearly view your colon. Follow all of the instructions in this handout EXACTLY as they are written. Do NOT eat any solid food the ENTIRE day before your colonoscopy. Buy your bowel preparation at least 5 days before your colonoscopy. Four (4) Dulcolax laxative tablets containing 5mg of bisacodyl each (NOT Dulcolax stool softener) One (1) 8.3oz. bottle Miralax (238 grams) or generic equivalent 2 x 32oz. Bottles of Gatorade (NOT RED) Diabetic Patients: Use G2 (Gatorade 2) TRANSPORTATION on the Day of Your Exam A responsible adult MUST be present with you at Check In prior to your colonoscopy and REMAIN in the endoscopy area until you are discharged. You are NOT ALLOWED to drive, take a taxi or bus, or leave the Endoscopy Center ALONE. If you do not have a responsible set key driver (family member or friend) with you to take you (more content not included)... Normal [facility] HIGH RISK HUMAN PAPILLOMA OWEN (HPV), PCR FOR DETECTION AND GENOTYPINGon 05-03-2024 HPV 16 Ag Ql (Unsp spec) Not detected Normal Not detected [facility] Comment on above: Order Comment: Speci men Type: FLUID SPECIMEN Ordering Facility: [facility] Address: [address] [place] [address] Performed By: #### L [id number], HPVHRT #### [facility] CLIA [id number] [address] [place] [address] [place] HPV 18 Ag Ql (Unsp spec) Not detected Normal Not detected [facility] Comment on above: Order Comment: Speci men Type: FLUID SPECIMEN Ordering Facility: [facility] Address: [address] [place] [address] Performed By: #### L [id number], HPVHRT #### [facility] CLIA [id number] [address] [place] [address] [place] HPV 31+33+35+39+45+51+ 52+56+58+59+66+68 DNA LUCÍA+probe Ql (Cvx) Not detected Normal Not detected [facility] Comment on above: Order Comment: Speci men Type: FLUID SPECIMEN Ordering Facility: [facility] Address: [address] [place] [address] Result Comment: High Risk HPV Other Type includes HPV types 31, 33, 35, 39, 45, 51, 52, 56, 58, 59, 66 and 68. Performed By: #### L [id number], HPVHRT #### [facility] CLIA [id number] [address] [place] [address] [place] PAP TESTon 05-03-2024 ADEQUACY Satisfactory for interpretation. Normal [facility] Comment on above: Order Comment: Speci men Type: FLUID SPECIMEN Ordering Facility: [facility] Address: [address] [place] [address] Performed By: #### L [id number], HPVHRT #### [facility] CLIA [id number] [address] [place] [address] [place] CASE REPORT Normal [facility] Comment on above: Order Comment: Speci men Type: FLUID SPECIMEN Ordering Facility: [facility] Address: [address] [place] [address] Result Comment: Gyne cologic Cytology Report Case: [id number] Authorizing Provider: Joanna Patel MD Collected: 05/03/2024 03:39 PM Ordering Location: OB/Gynecology Received: 05/03/2024 04:41 PM First Screen: Werner, Megan, CT, ASCP Specimen: Pap Test, ThinPrep, Cervix Performed By: #### L [id number], HPVHRT #### [facility] CLIA [id number] [address] [place] [address] [place] CLINICAL HISTORY, CYTOLOGY, PASTRY ASSISTANT Routine Exam Normal [facility] Comment on above: Order Comment: Speci men Type: FLUID SPECIMEN Ordering Facility: [facility] Address: [address] [place] [address] Performed By: #### L [id number], HPVHRT #### [facility] CLIA [id number] [address] [place] [address] [place] FINAL PERFORMING LAB Normal [facility] Comment on above: Order Comment: Speci men Type: FLUID SPECIMEN Ordering Facility: [facility] Address: [address] [place] [address] Result Comment: Tech nical component, it systems administrator screening performed at [facility], [address] [place] [address] CLIA# [id number] Diagnostic interpretation performed at [facility], [address] [place] [address] CLIA# [id number] Hogshead Mat Inspector: Chad Villanueva M.D. Performed By: #### L [id number], HPVHRT #### [facility] CLIA [id number] [address] [place] [address] [place] HPV REFLEX Yes HPV Normal [facility] Comment on above: Order Comment: Speci men Type: FLUID SPECIMEN Ordering Facility: [facility] Address: [address] [place] [address] Performed By: #### L [id number], HPVHRT #### [facility] CLIA [id number] [address] [place] [address] [place] INTERPRETATION, CYTOLOGY, PASTRY ASSISTANT Normal [facility] Comment on above: Order Comment: Speci men Type: FLUID SPECIMEN Ordering Facility: [facility] Address: [address] [place] [address] Result Comment: Nega tive for intraepithelial lesion or malignancy. Performed By: #### L [id number], HPVHRT #### [facility] CLIA [id number] [address] [place] [address] [place] LMP 04/29/2024 Normal [facility] Comment on above: Order Comment: Speci men Type: FLUID SPECIMEN Ordering Facility: [facility] Address: [address] [place] [address] Performed By: #### L [id number], HPVHRT #### [facility] CLIA [id number] [address] [place] [address] [place] PAP DISCLAIMER COMMENT The Pap Smear is a screening test for cervical cancer. False negative results occur with all screening tests, emphasizing the need for rescreening at recommended intervals, and clinical correlation. Normal [facility] Comment on above: Order Comment: Speci men Type: FLUID SPECIMEN Ordering Facility: [facility] Address: [address] [place] [address] Performed By: #### L [id number], HPVHRT #### [facility] CLIA [id number] [address] [place] [address] [place] PAP PANEL LAMINATOR COMMENT This specimen has be en analyzed by the ThinPrep Imaging System, an automated imaging and review system, which assists the laboratory in evaluating cells on ThinPrep Pap tests. Following automated imaging, selected pratt from every slide are reviewed by a it systems administrator. Normal [facility] Comment on above: Order Comment: Speci men Type: FLUID SPECIMEN Ordering Facility: [facility] Address: [address] [place] [address] Performed By: #### L [id number], HPVHRT #### [facility] CLIA [id number] [address] [place] [address] [id number] [place] [address] [facility] ANES Polo 05-29-2019 ANES POST HNO ID: [id number] Author: Bhavesh Castro Service: Anesthesiology Author Type: Anesthesiologist Type: Anesthesia PostOp Filed: 05/29/2019 1:18 PM Note Text: POST ANESTHESIA EVALUATION NOTE SERVICE DATE: 05/29/2019 SERVICE TIME: 1:18 PM : 1980 Vitals: 05/29/19 0725 05/29/19 0938 Temp: 36.1 ?C (97 ?F) 36.5 ?C (97.7 ?F) 05/29/19 0938 05/29/19 0945 05/29/19 1000 05/29/19 1015 BP: 105/58 121/59 110/63 102/62 05/29/19 0938 05/29/19 0945 05/29/19 1000 05/29/19 1015 Pulse: 110 98 81 60 05/29/19 0938 05/29/19 0945 05/29/19 1000 05/29/19 1015 Resp: 12 16 16 12 05/29/19 0938 05/29/19 0945 05/29/19 1000 05/29/19 1015 SpO2: 97% 97% 96% 100% Validated Vital Signs: Yes POST ANES STATUS: No apparent anesthetic complications. The patient is appropriately hydrated with stable respiratory and cardiovascular status. Patient has safe and adequate airway control. The patient has appropriate pain relief and no significant post operative nausea or vomiting. The patient has achieved baseline mental status. Further assessment by Anesthesia Service: None Other Remarks: SIGNATURE: Bhavesh Castro MD PATIENT NAME: Claudia Reynoso DATE: May 29, 2019 TIME: 1:18 PM PAGER/CONTACT #: [phone] [facility] ANES PREOPon 05-29-2019 ANES PREOP HNO ID: [id number] Author: Bhavesh Castro Service: Anesthesiology Author Type: Anesthesiologist Type: Anesthesia PreOp Filed: 05/29/2019 7:59 AM Note Text: ANESTHESIOLOGY DAY OF SURGERY NOTE SERVICE DATE: 05/29/2019 SERVICE TIME: 7:59 AM : 1980 Procedure(s) (LRB): EXAM UNDER ANESTHESIA RECTAL (N/A) FISTULECTOMY ANAL SECOND STAGE (N/A) Surgeon(s): Lety Pond Estimated body mass index is 22.93 kg/m? as calculated from the following: Height as of 05/02/19: 174 cm (5' 8.5). Weight as of 05/02/19: 69.4 kg (153 lb). Most recent hematocrit and potassium results: Hematocrit 36.6 08/02/2017 Potassium 3.9 05/30/2013 ANES DOS/PREOP NOTE: Vitals: 05/29/19 0725 BP: 112/57 Pulse: 71 Resp: 18 Temp: 36.1 ?C (97 ?F) SpO2: 96% ACTIVE PROBLEM LIST Third Degree Perineal Laceration During Delivery Family History of Defects Excessive Weight Gain in , Third Trimester Dermoid Cyst Short Interval Between Pregnancies Affecting , Antepartum History of Maternal Third Degree Perineal Laceration, Currently Anal Fistula PAST MEDICAL HISTORY Diagnosis Date - Cystic fibrosis screening 2014 neg antepartum CF screen - fracture 5 fractured tibia, playground accident(pt unsure which leg) PAST SURGICAL HISTORY Procedure Laterality Date - FISTULECTOMY/FISTULOTO MY SUBMUSCULAR 08/08/2018 anal fistulectomy w/seton drain - FISTULECTOMY/FISTULOTO MY SUBMUSCULAR 03/06/2019 - REPAIR ING HERNIA,5+Y/O,REDUCIBL 1989 Hernia repair, inguinal, right FAMILY HISTORY Problem Relation Age of Onset - Arthritis Mother - Hypertension Father - Ischemic Heart Disease Father - other (borderline DM2) Father - Heart Paternal Grandfather - Stroke Maternal Grandfather - Alzheimer's Disease Maternal Grandmother - Arthritis Paternal Grandmother - No Known Problems Sister - No Known Problems Brother - No Known Problems Son - No Known Problems Son Social History: Social History Tobacco Use - Smoking status: Never Smoker - Smokeless tobacco: Never Used Substance Use Topics - Alcohol use: Yes Alcohol/week: 5.0 standard drinks Types: 1 Cans of Beer (12oz), 1 Mixed Drinks per week Comment: 2-3 drinks a week, not while - Drug use: No No current facility-administered medications on file prior to encounter. Current Outpatient Medications on File Prior to Encounter: Vdfnzpeh-Xz-Ayh-Fe-FA ( VITAMIN) tab Take 1 tablet by mouth. Current Facility-Administered Medications Medication Dose Route Frequency Provider Last Rate Last Dose - lactated ringers infusion 30 mL/hr INTRAVENOUS CONTINUOUS Lety Diazan 30 mL/hr at 05/29/19 0715 30 mL/hr at 05/29/19 0715 - clindamycin iv piggyback 900 mg in D5W 50 mL (CLEOCIN) 900 mg INTRAVENOUS Pre-Op Once Lety T Meg Allergies: ALLERGIES Allergen Reactions - Cats Itching swelling eyes DOS EXAM: Adequate NPO status: Yes Anesthetic risks, benefits, alternatives, personnel and consent discussed: Yes Patient agrees to proceed: Yes Previous Anesthesia: No history of adverse event. Airway Assessment: MP 2; Neck ROM: Full ROM without neurologic symptoms; Airway Evaluation: No significant abnormalities Symptoms of Sleep Apnea: None Dentition: Teeth intact Additional Physical Exam: Lungs: Patient health status unchanged since recent history and physical. See history and physical for exam findings. Cardiac: Patient health status unchanged since recent history and physical. See history and physical for exam findings. Additional Pertinent Findings: N/A Blood Products: Not anticipated for this procedure. Anesthetic Plan: General, Standard ASA Monitors and MAC with Sedation Pain Management Plan: Parenteral or Oral ASA Class: 2 Other Medical Problems: None I have interviewed and examined the patient. I have reviewed the medical record and/or the pre-anesthesia evaluation, pertinent labs, and test results. Significant changes in the patient's condition since the History and Physical, not otherwise documented in primary service progress notes: No This contains updated information obtained within 48 hours of Surgery/Procedure. SIGNATURE: Bhavesh Castro MD PATIENT NAME: Claudia Reynoso DATE: May 29, 2019 TIME: 7:59 AM CSN: [id number] [facility] BRIEF OP NOTon 05-29-2019 BRIEF OP NOT HNO ID: [id number] Author: Lety Pond Service: General Surgery Author Type: Physician Type: Brief Op Note Filed: 05/29/2019 9:43 AM Note Text: BRIEF OPERATIVE NOTATION FOR SURGICAL PROCEDURE. Claudia Reynoso 1980 [id number] LOG ID: [id number] Surgery/Procedure Date: 05/29/2019 Incision/Procedure Start Time: 9:24 AM Incision Close/Procedure End Time: 9:33 AM Surgeon(s)/Procedurali st(s) and Choir Leader(s): Surgeon(s) and Role: * Lety Pond - Primary Physician Choir Leader: Nikolas Ewing (Pa)) Nica REFERRING PHYSICIAN: Outpatient DEPT: [facility] PROVIDER: Morgan POS: [id number] ANESTHESIA: Monitored Anesthesia Care ASA CLASS: 2 - mild DIAGNOSIS: fistula PROCEDURE: Examination Under Anesthesia, Anal Fistula - second stage - [id number] IVF: 500 EBL: 25 Specimens: none ADDITIONAL DIAGNOSES: FINDINGS: COMPLICATIONS: None PMHx - PAST MEDICAL HISTORY Diagnosis Date - Cystic fibrosis screening 2014 neg antepartum CF screen - fracture 5 fractured tibia, playground accident(pt unsure which leg) COMORBIDITIES - None Post Op Occurrences - None Wound Classification - Contaminated Operative note dictated in the dictation system. - [id number] Lety Pond MD [facility] HISTORY PHYSICALon 9 HISTORY PHYSICAL HNO ID: [id number] Author: Lety Pond Service: General Surgery Author Type: Physician Type: HANDP Filed: 05/29/2019 7:33 AM Note Text: HISTORY AND PHYSICAL ? Claudia Reynoso 1980 ? ? REFERRING PHYSICIAN: Swetha Poe PA (Pa) ? CHIEF COMPLAINT: Follow Up ? HPI: The patient is a 38 year old female with a complaint of a right perirectal abscess. The patient has noticed a perirectal abscess on her right perianal area since October. She had an incision and drainage in May. The site has not resolved. The patient has no history of crohn's disease ? CT scan demonstrated a persistent tract/cavity and a left ovarian mass consistent with a dermoid. ? 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 The patient noted a draining fistula ever since childbirth. ? I performed an examination under anesthesia, anal fistulotomy with seton placement on August 08, 2018. The fistula tract to the anterior midline at the rectovaginal septum and at the time of fistulotomy was noted to have scar tissue consistent with her repair. To be at the time of grade 3 laceration during childbirth. The patient currently notes no issues of fecal incontinence. her appetite has been good. she denies fever, chills or abdominal pain. she does note some but remarkably relatively minimal incisional discomfort. ? The patient noted on her October 19, 2018 visit that the seton is no longer present. She had no complaints of incontinence and no pain in the area. ? She now notes an area of granulation tissue that occasionally bleeds near the perianal aspect of her healed incision. ? She notes a persistent area of granulation tissue which is most likely a persistent superficial fistula. ? I performed a repeat examination under anesthesia, anal fistulotomy with seton placement on March 06, 2019. Pathology returned as fistula track. ? ? ? PAST?MEDICAL?HISTORY PAST MEDICAL HISTORY Diagnosis Date - Cystic fibrosis screening 2014 ? neg antepartum CF screen - fracture 5 ? fractured tibia, playground accident(pt unsure which leg) ? ? PAST?SURGICAL?HISTORY PAST SURGICAL HISTORY Procedure Laterality Date - FISTULECTOMY/FISTULOTO MY SUBMUSCULAR ? 08/08/2018 ? anal fistulectomy w/seton drain - FISTULECTOMY/FISTULOTO MY SUBMUSCULAR ? 03/06/2019 - REPAIR ING HERNIA,5+Y/O,REDUCIBL ? 1988 ? Hernia repair, inguinal, right ? ? ? CURRENT?MEDICATIONS ? Current Outpatient Medications: Praeruwl-Sp-Myg-Fe-FA ( VITAMIN) tab Take 1 tablet by mouth. dibucaine (NUPERCAINAL) 1 % oint As needed, as directed (Patient not taking: Reported on 05/02/2019 ) ? No current facility-administered medications for this visit. ? ALLERGIES: Cats ? 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 FAMILY HISTORY: FAMILY?HISTORY FAMILY HISTORY Problem Relation Age of Onset - Arthritis Mother ? - Hypertension Father ? - Ischemic Heart Disease Father ? - other (borderline DM2) Father ? - Heart Paternal Grandfather ? - Stroke Maternal Grandfather ? - Alzheimer's Disease Maternal Grandmother ? - Arthritis Paternal Grandmother ? - No Known Problems Sister ? - No Known Problems Brother ? - No Known Problems Son ? - No Known Problems Son ? ? ? REVIEW OF SYMPTOMS: The review of systems data was entered by the nurse and reviewed by me ? REVIEW OF SYSTEMS: ?General:???The patient denies?fatigue, denies?weight loss, denies?weight gain, denies?feeling hot, and denies?feelings of cold. ?Eyes: ?The patient denies?glaucoma, denies?eye injury/surgery, does not wear?glasses or contacts. ?Ear/Nose/Throat: ?The patient denies?allergies, denies?hayfever, denies?ear infections, and denies?bloody noses. ?Cardiovascular: ?The patient denies?chest pain, denies?heart disease, denies?high blood pressure,denies?cardia c stent, denies?prior heart attack, denies?irregular heart beat, denies?high cholesterol, ?denies?poor circulation, denies?heart failure, other cardiac issues, denies?claudication, denies?cold feet, denies?peripheral arterial stent. ?Respiratory: ?The patient denies?tuberculosis, denies?pneumonia, denies?frequent cough, denies?pulmonary embolism, denies?shortness of breath, and denies?coughing up blood. ?Gastrointestinal: ?The patient denies?difficulty swallowing, denies?acid reflux, denies?ulcers, denies?vomiting, denies?jaundice/hepati tis, denies?gallbladder problems, denies?black or tarry stools, NOTES?hemorrhoids, denies?bleeding from rectum, denies?diverticulitis, denies?constipation, denies?diarrhea, denies?loss of stool control, and denies?hernias. ?Kidney/Bladder: ?The patient denies?kidney stones, denies?urine infections, and denies?bloody urine. ?Skin: ?The patient denies?a history of skin cancer, denies?bleeding/changi ng moles, and denies?a history of skin rash. ?Neurologic: ?The patient denies?a history of epilepsy/convulsions, denies?headaches, denies?head/spinal injuries, and denies?stroke/TIA. ?Psychiatric: ?The patient denies?psychiatric medications, denies?depression, and denies?voices, denies?substance abuse. ?Endocrine: ?The patient denies?thyroid disorders, denies?diabetes, and denies?hormonal problems. ?Hematologic: ?The patient denies?a history of bruising, denies?bleeding, and denies?anemia, denies?blood clots. ?Infections: ?The patient denies?a history of measles and mumps, denies?rheumatic fever, and denies?sexually transmitted diseases. ?Musculoskeletal: ?The patient denies?back pain/injury, denies?back problems, denies?sciatica, denies?knee/foot trouble, denies?arthritis, or denies?gout. ? ? When was patient's last Mammogram screening??N/A ? ?Last Colonoscopy: ?NA? ? Tesfaye Milan ? PHYSICAL EXAMINATION: ? General: The patient is 38 year old female, well nourished, well hydrated in no acute distress. The patient is oriented to time, place, and person. ? VITALS: Blood pressure 124/74, pulse 80, temperature 36.3 ?C (97.3 ?F), temperature source Temporal Artery, height 174 cm (5' 8.5), weight 69.4 kg (153 lb), SpO2 99 %, not currently . ? HEENT: Normal cephalic, ataumatic, pupils are equally round, sclera are anicteric, mucous membranes are moist, oropharynx is clear. Neck has no masses, asymmetry or lymphadenopathy. Thyroid is unremarkable. ? Respiratory: Clear to auscultation and percussion. Normal respiratory excursion and pattern. ? Cardiac: Examination is regular rate and rhythm. No rubs murmurs or additional cardiac tones ? Abdominal exam: Soft, nontender, with no palpable masses. No hepatosplenomegaly. No palpable hernias. ? Rectal exam: exam deferred - right lateral perianal area - seton in place small amount granulation tissue, No significant erythema or fluctuance ? Extremities: no clubbing, cyanosis or edema. No adenopathy. ? Other: ? ? LABORATORY VALUES: As Noted ? RADIOLOGIC STUDIES: As Noted ? Assessment IMPRESSION: likely anal fistula ? PLAN: I plan to perform an examination under anesthesia, anal fistulotomy, possible seton placement. The planned surgical procedure was discussed extensively with the patient. The risks, benefits and anticipated outcomes of the procedure, the risks and benefits of the alternatives to the procedure, and the roles and tasks of the personnel to be involved, were discussed with the patient. My staff has also explained the procedure in understandable terms and the patient was given the option to take printed material concerning the planned procedure. The patient had the opportunity to ask questions concerning the planned procedure. The patient freely consents to the planned procedure. ? Anticipated Surgical Procedure/ CPT Code: Examination Under Anesthesia, Anal Fistula - 84259-285 ? Anticipated Anesthetic: General ? Patient weight: Blood pressure 124/74, pulse 80, temperature 36.3 ?C (97.3 ?F), temperature source Temporal Artery, height 174 cm (5' 8.5), weight 69.4 kg (153 lb), SpO2 99 %, not currently . BMI: Body mass index is 22.93 kg/m?. ? Planned antibiotic: clindamycin 900mg IVPB agricultural production engineer to OR ? SCDs needed - Yes ? Choir Leader Needed - Yes ? Diagnoses: (K60.3) Anal fistula (primary encounter diagnosis) ? ? Return to Clinic: The patient is instructed to follow-up with me after the testing has been completed. ? This note was partially generated using Fanzy voice recognition system, and there may be some incorrect words, spellings, and punctuation that were not noted in checking the note before saving. ? Lety Pond MD [facility] NURSING PROGon 05-29-2019 NURSING PROG HNO ID: [id number] Author: Екатерина (Rn) ALONSO Good Service: Nursing Author Type: Registered Nurse Type: Nursing Progress Note Filed: 05/29/2019 10:11 AM Note Text: 0938 pt to PACU. Awake AND crying, reassurrance given. Pt denies pain. Ice clay pad in place DANDI, mesh panties on. PIV DANDI. VSS no s/sx of distress. 1000 pt tolerates ice denies nausea. 1010 report called to Ayanna GUPTA in ASCU. [facility] OPERATIVE NOon 05-29-2019 OPERATIVE NO HNO ID: [id number] Author: Lety Pond Service: General Surgery Author Type: Physician Type: Operative Report Filed: 05/30/2019 6:07 AM Note Text: [facility] - Operative Report CLAUDIA REYNOSO : 1980 AGE: 39. SEX: F PATIENT TYPE: A HOSP SVC: [facility] LOCATION: [facility]– [place] ATTENDING PHYSICIAN: LETY POND CSN NUMBER: [id number] DATE OF SURGERY/PROCEDURE: 05/29/2019 INCISION/PROCEDURE START TIME: 9:24. INCISION CLOSE/PROCEDURE END TIME: 9:33. PREOPERATIVE DIAGNOSIS: Anterior anal fistula with seton placed. POSTOPERATIVE DIAGNOSIS: Well-healed sphincter complex. No other specific abnormalities. SURGEON: Lety Pond M.D. QC ANALYST: SURGERY/PROCEDURE: Examination under anesthesia and second-stage fistulotomy and seton removal. ANESTHESIA: Monitored anesthetic care. LOG ID NUMBER: [id number]. ANESTHESIOLOGIST: Bhavesh Castro. ASA: 2. IV FLUIDS: 500 mL. ESTIMATED BLOOD LOSS: 25 mL. URINE OUTPUT: No catheter. FINDINGS: As above. SPECIMENS: None. DRAINS: None. COMPLICATIONS: None. The patient was taken to PACU in stable condition. DESCRIPTION OF PROCEDURE: The patient was brought to the operative suite. Sign-in was performed verifying patient, site, procedure, position, critical nursing information, VTE and antibiotic prophylaxis. The patient received 900mg of Clindamycin and had sequential compression devices placed. Following IV sedation, the perineal area was prepped and draped in sterile fashion. Time-out verifying patient, site, procedure, position. By digital exam revealed healing tissue consistent with the second-stage fistula tract healing in the right anterior aspect. The rectovaginal septum was felt to have an intact sphincter complex anteriorly and there appeared to be a well-healed scar consistent with her previous known episiotomy and third-degree childbirth laceration. There was a right posterior hemorrhoidal complex on the external area. Internal anal exam both digitally and via anoscopy was unremarkable except for the seton at the 5 o'clock anterior position. At this point, electrocautery was used to divide the sphincter muscle under the seton, and the seton was removed completely. Electrocautery was used to obtain hemostasis. Following this, 0.5% lidocaine, 0.25% Marcaine mixture was injected into the area of surgical intervention. Dibucaine Gelfoam was placed in the anal canal. Dressing applied. The patient returned to the supine position and brought to recovery in stable condition. Lety Pond M.D. RG:[id number] [facility] PT EDon 05-29-2019 PT ED HNO ID: [id number] Author: Ayanna Ramirez RN Service: Nursing Author Type: Registered Nurse Type: Patient Education Filed: 05/29/2019 10:50 AM Note Text: POST OP LEARNING RESPONSE INSTRUCTION PROVIDED TO: Patient and family member METHOD OF INSTRUCTION: Written instruction - handouts PATIENT / FAMILY RESPONSE: Verbalizes understanding of: POST-OPERATIVE INSTRUCTIONS-Correct actions to take to reduce postoperative complications FOLLOW-UP PLAN: Patient instructed to call with any further issues SUPPLEMENTAL MATERIAL: None REFERRAL (RECOMMENDATION): None Electronically Signed By: Ayanna Ramirez RN In Department: [facility] SURGERY [facility] PT ED HNO ID: [id number] Author: Marianela Toledo RN Service: Nursing Author Type: Registered Nurse Type: Patient Education Filed: 05/29/2019 7:11 AM Note Text: PRE OP LEARNING ASSESSMENT PROCEDURE/SURGERY: SURGERY: READINESS TO LEARN COGNITIVE ABILITY: Alert and oriented MOTIVATION TO LEARN: Eager FAMILY SUPPORT: High - Very involved in pt care PATIENT LEARNS BEST BY: Verbal Instruction FACTORS AFFECTING LEARNING: None PHYSICAL LIMITATIONS AFFECTING LEARNING: None Electronically Signed By: Marianela Toledo RN In Department: [facility] SURGERY Normal [facility] HOSPon 05-02-2019 HOSP Patient:Claudia Reynoso MRN: Height:5' 8.5(1.74 m) Weight:153 lb (69.4 kg) Outpatient Medications as of 05/29/19: Gotaznss-Va-Fnf-Fe-FA ( VITAMIN) tab Admission/Clinic Administered Medications as of 05/29/19: lactated ringers infusion clindamycin iv piggyback 900 mg in D5W 50 mL (CLEOCIN) Problem List: Third degree perineal laceration during delivery [O70.20] Family history of defects [Z82.79] Excessive weight gain in , third trimester [O26.03] Dermoid cyst [D36.9] Short interval between pregnancies affecting , antepartum [O09.899] History of maternal third degree perineal laceration, currently [O09.299] Anal fistula [K60.3] Allergies: Cats Date Verified: 05/29/19 Lab Values No results within the last 30 days for the following basenames: K,HCT Progress Notes ([facility]): Tesfaye Milan 05/02/2019 9:56 AM Signed 05-29-2019 EUA and 2nd stage fistulotomy Progress Notes ([facility]): Nia Rush LPN 05/02/2019 9:16 AM Signed rodrigue Pond MD 05/02/2019 1:24 PM Signed HISTORY AND PHYSICAL Claudia Reynoso 1980 REFERRING PHYSICIAN: Swetha Poe (Lisbeth), LISBETH CHIEF COMPLAINT: Follow Up HPI: The patient is a 38 year old female with a complaint of a right perirectal abscess. The patient has noticed a perirectal abscess on her right perianal area since October. She had an incision and drainage in May. The site has not resolved. The patient has no history of crohn's disease CT scan demonstrated a persistent tract/cavity and a left ovarian mass consistent with a dermoid. 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 The patient noted a draining fistula ever since childbirth. I performed an examination under anesthesia, anal fistulotomy with seton placement on August 08, 2018. The fistula tract to the anterior midline at the rectovaginal septum and at the time of fistulotomy was noted to have scar tissue consistent with her repair. To be at the time of grade 3 laceration during childbirth. The patient currently notes no issues of fecal incontinence. her appetite has been good. she denies fever, chills or abdominal pain. she does note some but remarkably relatively minimal incisional discomfort. The patient noted on her October 19, 2018 visit that the seton is no longer present. She had no complaints of incontinence and no pain in the area. She now notes an area of granulation tissue that occasionally bleeds near the perianal aspect of her healed incision. She notes a persistent area of granulation tissue which is most likely a persistent superficial fistula. I performed a repeat examination under anesthesia, anal fistulotomy with seton placement on March 06, 2019. Pathology returned as fistula track. PAST MEDICAL HISTORY Diagnosis Date - Cystic fibrosis screening 2014 neg antepartum CF screen - fracture 5 fractured tibia, playground accident(pt unsure which leg) PAST SURGICAL HISTORY Procedure Laterality Date - FISTULECTOMY/FISTULOTO MY SUBMUSCULAR 08/08/2018 anal fistulectomy w/seton drain - FISTULECTOMY/FISTULOTO MY SUBMUSCULAR 03/06/2019 - REPAIR ING HERNIA,5+Y/O,REDUCIBL 1989 Hernia repair, inguinal, right Current Outpatient Medications: Abyyzcpw-Uy-Bup-Fe-FA ( VITAMIN) tab Take 1 tablet by mouth. dibucaine (NUPERCAINAL) 1 % oint As needed, as directed (Patient not taking: Reported on 05/02/2019 ) No current facility-administered medications for this visit. 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 Tobacco Use Smoking status: Never Smoker Smokeless tobacco: Never Used Substance and Sexual Activity Alcohol use: Yes Alcohol/week: 3.0 oz Types: 1 Cans of Beer (12oz), 1 Mixed Drinks per week Comment: 2-3 drinks a week, not while Drug use: No Sexual activity: Yes Partners: Male Other Topics Concerns: Not on file Social History Narrative Not on file FAMILY HISTORY: FAMILY HISTORY Problem Relation Age of Onset - Arthritis Mother - Hypertension Father - Ischemic Heart Disease Father - other (borderline DM2) Father - Heart Paternal Grandfather - Stroke Maternal Grandfather - Alzheimer's Disease Maternal Grandmother - Arthritis Paternal Grandmother - No Known Problems Sister - No Known Problems Brother - No Known Problems Son - No Known Problems Son REVIEW OF SYMPTOMS: The review of systems data was entered by the nurse and reviewed by me REVIEW OF SYSTEMS: General: The patient denies fatigue, denies weight loss, denies weight gain, denies feeling hot, and denies feelings of cold. Eyes: The patient denies glaucoma, denies eye injury/surgery, does not wear glasses or contacts. Ear/Nose/Throat: The patient denies allergies, denies hayfever, denies ear infections, and denies bloody noses. Cardiovascular: The patient denies chest pain, denies heart disease, denies high blood pressure,denies cardiac stent, denies prior heart attack, denies irregular heart beat, denies high cholesterol, denies poor circulation, denies heart failure, other cardiac issues, denies claudication, denies cold feet, denies peripheral arterial stent. Respiratory: The patient denies tuberculosis, denies pneumonia, denies frequent cough, denies pulmonary embolism, denies shortness of breath, and denies coughing up blood. Gastrointestinal: The patient denies difficulty swallowing, denies acid reflux, denies ulcers, denies vomiting, denies jaundice/hepatitis, denies gallbladder problems, denies black or tarry stools, NOTES hemorrhoids, denies bleeding from rectum, denies diverticulitis, denies constipation, denies diarrhea, denies loss of stool control, and denies hernias. Kidney/Bladder: The patient denies kidney stones, denies urine infections, and denies bloody urine. Skin: The patient denies a history of skin cancer, denies bleeding/changing moles, and denies a history of skin rash. Neurologic: The patient denies a history of epilepsy/convulsions, denies headaches, denies head/spinal injuries, and denies stroke/TIA. Psychiatric: The patient denies psychiatric medications, denies depression, and denies voices, denies substance abuse. Endocrine: The patient denies thyroid disorders, denies diabetes, and denies hormonal problems. Hematologic: The patient denies a history of bruising, denies bleeding, and denies anemia, denies blood clots. Infections: The patient denies a history of measles and mumps, denies rheumatic fever, and denies sexually transmitted diseases. Musculoskeletal: The patient denies back pain/injury, denies back problems, denies sciatica, denies knee/foot trouble, denies arthritis, or denies gout. ? ? When was patient's last Mammogram screening? N/A ? Last Colonoscopy: NA ? Tesfaye Milan PHYSICAL EXAMINATION: General: The patient is 38 year old female, well nourished, well hydrated in no acute distress. The patient is oriented to time, place, and person. VITALS: Blood pressure 124/74, pulse 80, temperature 36.3 ?C (97.3 ?F), temperature source Temporal Artery, height 174 cm (5' 8.5), weight 69.4 kg (153 lb), SpO2 99 %, not currently . HEENT: Normal cephalic, ataumatic, pupils are equally round, sclera are anicteric, mucous membranes are moist, oropharynx is clear. Neck has no masses, asymmetry or lymphadenopathy. Thyroid is unremarkable. Respiratory: Clear to auscultation and percussion. Normal respiratory excursion and pattern. Cardiac: Examination is regular rate and rhythm. No rubs murmurs or additional cardiac tones Abdominal exam: Soft, nontender, with no palpable masses. No hepatosplenomegaly. No palpable hernias. Rectal exam: exam deferred - right lateral perianal area - seton in place small amount granulation tissue, No significant erythema or fluctuance Extremities: no clubbing, cyanosis or edema. No adenopathy. Other: LABORATORY VALUES: As Noted RADIOLOGIC STUDIES: As Noted Assessment IMPRESSION: likely anal fistula PLAN: I plan to perform an examination under anesthesia, anal fistulotomy, possible seton placement. The planned surgical procedure was discussed extensively with the patient. The risks, benefits and anticipated outcomes of the procedure, the risks and benefits of the alternatives to the procedure, and the roles and tasks of the personnel to be involved, were discussed with the patient. My staff has also explained the procedure in understandable terms and the patient was given the option to take printed material concerning the planned procedure. The patient had the opportunity to ask questions concerning the planned procedure. The patient freely consents to the planned procedure. Anticipated Surgical Procedure/ CPT Code: Examination Under Anesthesia, Anal Fistula - 47430-161 Anticipated Anesthetic: General Patient weight: Blood pressure 124/74, pulse 80, temperature 36.3 ?C (97.3 ?F), temperature source Temporal Artery, height 174 cm (5' 8.5), weight 69.4 kg (153 lb), SpO2 99 %, not currently . BMI: Body mass index is 22.93 kg/m?. Planned antibiotic: clindamycin 900mg IVPB agricultural production engineer to OR SCDs needed - Yes Choir Leader Needed - Yes Diagnoses: (K60.3) Anal fistula (primary encounter diagnosis) Return to Clinic: The patient is instructed to follow-up with me after the testing has been completed. This note was partially generated using [employer]zy voice recognition system, and there may be some incorrect words, spellings, and punctuation that were not noted in checking the note before saving. Lety Pond MD [facility] ANES [place] 03-06-2019 ANES POST HNO ID: [id number] Author: Yissel Roy Service: Anesthesiology Author Type: Anesthesiologist Type: Anesthesia PostOp Filed: 03/06/2019 2:53 PM Note Text: POST ANESTHESIA EVALUATION NOTE SERVICE DATE: 03/06/2019 SERVICE TIME: 2:52 PM : 1980 Vitals: 03/06/19 0934 03/06/19 1254 03/06/19 1330 Temp: 36.9 ?C (98.4 ?F) 37.1 ?C (98.8 ?F) 36.6 ?C (97.9 ?F) 03/06/19 0934 03/06/19 1254 03/06/19 1315 03/06/19 1330 BP: 125/61 125/62 103/60 107/63 03/06/19 0934 03/06/19 1254 03/06/19 1315 03/06/19 1330 Pulse: 71 112 64 60 03/06/19 0934 03/06/19 1254 03/06/19 1315 03/06/19 1330 Resp: 18 16 16 16 03/06/19 0934 03/06/19 1254 03/06/19 1315 03/06/19 1330 SpO2: 100% 97% 96% 100% Validated Vital Signs: Yes POST ANES STATUS: No apparent anesthetic complications. The patient is appropriately hydrated with stable respiratory and cardiovascular status. Patient has safe and adequate airway control. The patient has appropriate pain relief and no significant post operative nausea or vomiting. The patient has achieved baseline mental status. Intra-Operative Events: No Significant Anesthesia Events Further assessment by Anesthesia Service: None Other Remarks: SIGNATURE: Yissel Roy MD PATIENT NAME: Claudia Reynoso DATE: March 06, 2019 TIME: 2:52 PM PAGER/CONTACT #: [phone] [facility] ANES PREOPon 03-06-2019 ANES PREOP HNO ID: [id number] Author: Bhavesh Castro Service: Anesthesiology Author Type: Anesthesiologist Type: Anesthesia PreOp Filed: 03/06/2019 10:38 AM Note Text: ANESTHESIOLOGY DAY OF SURGERY NOTE SERVICE DATE: 03/06/2019 SERVICE TIME: 10:37 AM : 1980 Procedure(s) (LRB): EXAM UNDER ANESTHESIA RECTAL (N/A) Surgeon(s): Lety Pond Estimated body mass index is 23.43 kg/m? as calculated from the following: Height as of 02/20/19: 174 cm (5' 8.5). Weight as of 02/20/19: 70.9 kg (156 lb 6.4 oz). Most recent hematocrit and potassium results: Hematocrit 36.6 08/02/2017 Potassium 3.9 05/30/2013 ANES DOS/PREOP NOTE: Vitals: 03/06/19 0934 BP: 125/61 Pulse: 71 Resp: 18 Temp: 36.9 ?C (98.4 ?F) TempSrc: Temporal SpO2: 100% ACTIVE PROBLEM LIST Third Degree Perineal Laceration During Delivery Family History of Defects Excessive Weight Gain in , Third Trimester Dermoid Cyst Short Interval Between Pregnancies Affecting , Antepartum History of Maternal Third Degree Perineal Laceration, Currently Anal Fistula PAST MEDICAL HISTORY Diagnosis Date - Cystic fibrosis screening 2014 neg antepartum CF screen - fracture 5 fractured tibia, playground accident(pt unsure which leg) PAST SURGICAL HISTORY Procedure Laterality Date - FISTULECTOMY/FISTULOTO MY SUBMUSCULAR 08/08/2018 anal fistulectomy w/seton drain - REPAIR ING HERNIA,5+Y/O,REDUCIBL 1989 Hernia repair, inguinal, right FAMILY HISTORY Problem Relation Age of Onset - Arthritis Mother - Hypertension Father - Ischemic Heart Disease Father - other (borderline DM2) Father - Heart Paternal Grandfather - Stroke Maternal Grandfather - Alzheimer's Disease Maternal Grandmother - Arthritis Paternal Grandmother - No Known Problems Sister - No Known Problems Brother - No Known Problems Son - No Known Problems Son Social History: Social History Tobacco Use - Smoking status: Never Smoker - Smokeless tobacco: Never Used Substance Use Topics - Alcohol use: Yes Alcohol/week: 3.0 oz Types: 1 Cans of Beer (12oz), 1 Mixed Drinks per week Comment: 2-3 drinks a week, not while - Drug use: No No current facility-administered medications on file prior to encounter. Current Outpatient Medications on File Prior to Encounter: Maklmvmg-Cn-Jma-Fe-FA ( VITAMIN) tab Take 1 tablet by mouth. Current Facility-Administered Medications Medication Dose Route Frequency Provider Last Rate Last Dose - lactated ringers infusion 30 mL/hr INTRAVENOUS CONTINUOUS Lety Gosnales Meg 30 mL/hr at 03/06/19 0930 30 mL/hr at 03/06/19 0930 - clindamycin iv piggyback 900 mg in D5W 50 mL (CLEOCIN) 900 mg INTRAVENOUS Pre-Op Once Lety T Meg Allergies: ALLERGIES Allergen Reactions - Cats Itching swelling eyes DOS EXAM: Adequate NPO status: Yes Anesthetic risks, benefits, alternatives, personnel and consent discussed: Yes Patient agrees to proceed: Yes Previous Anesthesia: No history of adverse event. Airway Assessment: MP 2; Neck ROM: Full ROM without neurologic symptoms; Airway Evaluation: No significant abnormalities Symptoms of Sleep Apnea: None Dentition: Teeth intact Additional Physical Exam: Lungs: Patient health status unchanged since recent history and physical. See history and physical for exam findings. Cardiac: Patient health status unchanged since recent history and physical. See history and physical for exam findings. Additional Pertinent Findings: N/A Blood Products: Not anticipated for this procedure. Anesthetic Plan: MAC with Sedation Pain Management Plan: Parenteral or Oral ASA Class: 1 Other Medical Problems: None I have interviewed and examined the patient. I have reviewed the medical record and/or the pre-anesthesia evaluation, pertinent labs, and test results. Significant changes in the patient's condition since the History and Physical, not otherwise documented in primary service progress notes: No This contains updated information obtained within 48 hours of Surgery/Procedure. SIGNATURE: Bhavesh Castro MD PATIENT NAME: Claudia Reynoso DATE: March 06, 2019 TIME: 10:37 AM CSN: [id number] [facility] BRIEF OP NOTon 03-06-2019 BRIEF OP NOT HNO ID: [id number] Author: Lety Pond Service: General Surgery Author Type: Physician Type: Brief Op Note Filed: 03/06/2019 12:57 PM Note Text: BRIEF OPERATIVE NOTATION FOR SURGICAL PROCEDURE. Claudia Reynoso 1980 [id number] female LOG ID: [id number] Surgery/Procedure Date: 03/06/2019 Incision/Procedure Start Time: 12:34 PM Incision Close/Procedure End Time: 12:50 PM Surgeon(s)/Procedurali st(s) and Choir Leader(s): Surgeon(s) and Role: * Lety Pond - Primary Physician Choir Leader: Connie Yousif Poison Information Specialist: Altagracia Aguirre SA REFERRING PHYSICIAN: Outpatient DEPT: [facility] PROVIDER: Morgan POS: [id number] ANESTHESIA: Monitored Anesthesia Care ASA CLASS: 1 - healthy DIAGNOSIS: anal fistula PROCEDURE: Examination Under Anesthesia, Anal Fistula with Seton - [id number] IVF: 600 EBL: 20 Specimens: fistula tract ADDITIONAL DIAGNOSES: FINDINGS: still deeper fistula COMPLICATIONS: None PMHx - PAST MEDICAL HISTORY Diagnosis Date - Cystic fibrosis screening 2014 neg antepartum CF screen - fracture 5 fractured tibia, playground accident(pt unsure which leg) COMORBIDITIES - None Post Op Occurrences - None Wound Classification - Clean Contaminated Operative note dictated in the dictation system. - [id number] Lety Pond MD [facility] HISTORY PHYSICALon 9 HISTORY PHYSICAL HNO ID: [id number] Author: Lety Pond Service: General Surgery Author Type: Physician Type: HANDP Filed: 03/06/2019 10:30 AM Note Text: HISTORY AND PHYSICAL ? Claudia Reynoso 1980 ? ? REFERRING PHYSICIAN: Swetha Poe (Lisbeth), LISBETH ? CHIEF COMPLAINT: Follow Up ? HPI: The patient is a 38 year old female with a complaint of a right perirectal abscess. The patient has noticed a perirectal abscess on her right perianal area since October. She had an incision and drainage in May. The site has not resolved. The patient has no history of crohn's disease ? CT scan demonstrated a persistent tract/cavity and a left ovarian mass consistent with a dermoid. ? 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 The patient noted a draining fistula ever since childbirth. ? I performed an examination under anesthesia, anal fistulotomy with seton placement on August 08, 2018. The fistula tract to the anterior midline at the rectovaginal septum and at the time of fistulotomy was noted to have scar tissue consistent with her repair. To be at the time of grade 3 laceration during childbirth. The patient currently notes no issues of fecal incontinence. her appetite has been good. she denies fever, chills or abdominal pain. she does note some but remarkably relatively minimal incisional discomfort. ? The patient noted on her October 19, 2018 visit that the seton is no longer present. She had no complaints of incontinence and no pain in the area. ? She now notes an area of granulation tissue that occasionally bleeds near the perianal aspect of her healed incision. ? She notes a persistent area of granulation tissue which is most likely a persistent superficial fistula. ? PAST?MEDICAL?HISTORY PAST MEDICAL HISTORY Diagnosis Date - Cystic fibrosis screening 2014 ? neg antepartum CF screen - fracture 5 ? fractured tibia, playground accident(pt unsure which leg) ? ? PAST?SURGICAL?HISTORY PAST SURGICAL HISTORY Procedure Laterality Date - FISTULECTOMY/FISTULOTO MY SUBMUSCULAR ? 08/08/2018 ? anal fistulectomy w/seton drain - REPAIR ING HERNIA,5+Y/O,REDUCIBL ? 1988 ? Hernia repair, inguinal, right ? ? ? CURRENT?MEDICATIONS ? Current Outpatient Medications: Nsqyuvvd-By-Hoh-Fe-FA ( VITAMIN) tab Take 1 tablet by mouth. ? No current facility-administered medications for this visit. ? ALLERGIES: Cats ? 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 FAMILY HISTORY: FAMILY?HISTORY FAMILY HISTORY Problem Relation Age of Onset - Arthritis Mother ? - Hypertension Father ? - Ischemic Heart Disease Father ? - other (borderline DM2) Father ? - Heart Paternal Grandfather ? - Stroke Maternal Grandfather ? - Alzheimer's Disease Maternal Grandmother ? - Arthritis Paternal Grandmother ? - No Known Problems Sister ? - No Known Problems Brother ? - No Known Problems Son ? - No Known Problems Son ? ? ? REVIEW OF SYMPTOMS: The review of systems data was entered by the nurse and reviewed by me ? REVIEW OF SYSTEMS: ?General:???The patient denies?fatigue, denies?weight loss, denies?weight gain, denies?feeling hot, and denies?feelings of cold. ?Eyes: ?The patient denies?glaucoma, denies?eye injury/surgery, does not wear?glasses or contacts. ?Ear/Nose/Throat: ?The patient denies?allergies, denies?hayfever, denies?ear infections, and denies?bloody noses. ?Cardiovascular: ?The patient denies?chest pain, denies?heart disease, denies?high blood pressure,denies?cardia c stent, denies?prior heart attack, denies?irregular heart beat, denies?high cholesterol, ?denies?poor circulation, denies?heart failure, other cardiac issues, denies?claudication, denies?cold feet, denies?peripheral arterial stent. ?Respiratory: ?The patient denies?tuberculosis, denies?pneumonia, denies?frequent cough, denies?pulmonary embolism, denies?shortness of breath, and denies?coughing up blood. ?Gastrointestinal: ?The patient denies?difficulty swallowing, denies?acid reflux, denies?ulcers, denies?vomiting, denies?jaundice/hepati tis, denies?gallbladder problems, denies?black or tarry stools, NOTES?hemorrhoids, denies?bleeding from rectum, denies?diverticulitis, denies?constipation, denies?diarrhea, denies?loss of stool control, and denies?hernias. ?Kidney/Bladder: ?The patient denies?kidney stones, denies?urine infections, and denies?bloody urine. ?Skin: ?The patient denies?a history of skin cancer, denies?bleeding/changi ng moles, and denies?a history of skin rash. ?Neurologic: ?The patient denies?a history of epilepsy/convulsions, denies?headaches, denies?head/spinal injuries, and denies?stroke/TIA. ?Psychiatric: ?The patient denies?psychiatric medications, denies?depression, and denies?voices, denies?substance abuse. ?Endocrine: ?The patient denies?thyroid disorders, denies?diabetes, and denies?hormonal problems. ?Hematologic: ?The patient denies?a history of bruising, denies?bleeding, and denies?anemia, denies?blood clots. ?Infections: ?The patient denies?a history of measles and mumps, denies?rheumatic fever, and denies?sexually transmitted diseases. ?Musculoskeletal: ?The patient denies?back pain/injury, denies?back problems, denies?sciatica, denies?knee/foot trouble, denies?arthritis, or denies?gout. ? ? When was patient's last Mammogram screening??N/A ? ?Last Colonoscopy: ?NA? ? Tesfaye Milan ? PHYSICAL EXAMINATION: ? General: The patient is 38 year old female, well nourished, well hydrated in no acute distress. The patient is oriented to time, place, and person. ? VITALS: Blood pressure 116/64, pulse 80, temperature 37.2 ?C (99 ?F), height 172.7 cm (5' 8), weight 70.9 kg (156 lb 3.2 oz), SpO2 96 %, not currently . ? HEENT: Normal cephalic, ataumatic, pupils are equally round, sclera are anicteric, mucous membranes are moist, oropharynx is clear. Neck has no masses, asymmetry or lymphadenopathy. Thyroid is unremarkable. ? Respiratory: Clear to auscultation and percussion. Normal respiratory excursion and pattern. ? Cardiac: Examination is regular rate and rhythm. ? Abdominal exam: Soft, nontender, with no palpable masses. No hepatosplenomegaly. No palpable hernias. ? Rectal exam: exam deferred - right lateral perianal area - small sinus a with a cord running to the anal verge consistent with an anal fistula, No significant erythema or fluctuance ? Extremities: no clubbing, cyanosis or edema. No adenopathy. ? Other: ? ? LABORATORY VALUES: As Noted ? RADIOLOGIC STUDIES: As Noted ? Assessment IMPRESSION: likely anal fistula ? PLAN: I plan to perform an examination under anesthesia, anal fistulotomy, possible seton placement. The planned surgical procedure was discussed extensively with the patient. The risks, benefits and anticipated outcomes of the procedure, the risks and benefits of the alternatives to the procedure, and the roles and tasks of the personnel to be involved, were discussed with the patient. My staff has also explained the procedure in understandable terms and the patient was given the option to take printed material concerning the planned procedure. The patient had the opportunity to ask questions concerning the planned procedure. The patient freely consents to the planned procedure. ? Anticipated Surgical Procedure/ CPT Code: Examination Under Anesthesia, Anal Fistula - 95790-250 ? Anticipated Anesthetic: General ? Patient weight: Blood pressure 116/64, pulse 80, temperature 37.2 ?C (99 ?F), height 172.7 cm (5' 8), weight 70.9 kg (156 lb 3.2 oz), SpO2 96 %, not currently . BMI: Body mass index is 23.75 kg/m?. ? Planned antibiotic: clindamycin 900mg IVPB agricultural production engineer to OR ? SCDs needed - Yes ? Choir Leader Needed - Yes ? Diagnoses: (K60.3) Anal fistula (primary encounter diagnosis) (L02.31) Abscess of buttock, right ? My findings have been communicated to Swetha Poe via shared medical record. This note will be forwarded to No primary care provider on file.. Return to Clinic: The patient is instructed to follow-up with me after the testing has been completed. ? This note was partially generated using Fan[employer] voice recognition system, and there may be some incorrect words, spellings, and punctuation that were not noted in checking the note before saving. ? Lety Pond MD Normal [facility] OPERATIVE NOon 03-06-2019 OPERATIVE NO HNO ID: [id number] Author: Lety Pond Service: General Surgery Author Type: Physician Type: Operative Report Filed: 03/08/2019 7:53 AM Note Text: [facility] - Operative Report CLAUDIA REYNOSO : 1980 AGE: 38. SEX: F PATIENT TYPE: [place] [facility] [place] [facility] LOCATION: [facility] ATTENDING PHYSICIAN: LETY PNOD CSN NUMBER: [id number] DATE OF SURGERY/PROCEDURE: 03/06/2019 INCISION/PROCEDURE START TIME: 12:34 INCISION CLOSE/PROCEDURE END TIME: 12:50. PREOPERATIVE DIAGNOSIS: Anterior anal fistula. POSTOPERATIVE DIAGNOSIS: Anterior anal fistula still with relatively deep tract. SURGEON: Lety Pond M.D. QC ANALYST: SURGERY/PROCEDURE: Examination under anesthesia, fistulotomy with seton placement. ANESTHESIA: Local MAC. LOG ID NUMBER: [id number]. ANESTHESIOLOGIST: Matthew. ASA: 1. INTRAVENOUS FLUIDS: 600 cc. ESTIMATED BLOOD LOSS: 20 cc. URINE OUTPUT: No catheter. FINDINGS: Fistula still deep with sphincter. SPECIMENS: Fistula tract. DRAINS: None. COMPLICATIONS: None. DISPOSITION: Patient was taken to PACU in a stable condition. DESCRIPTION OF PROCEDURE: The patient was brought to the operative suite. Sign-in was performed verifying the patient, site, procedure, position, critical nursing information, VTE, and antibiotic prophylaxis. The patient received 900 mg of clindamycin and sequential compression device was placed. The patient was positioned in the prone eliezer-knife position. The perianal area was prepped and draped in the usual fashion. The patient was sedated. A regional field block of 1% lidocaine, 0.5% Marcaine 50:50 mixture was injected. Digital exam revealed the scarring at the site of the previous fistulotomy. A seton had been placed, but unfortunately seton fell off postoperatively and the fistula recurred. [place] anoscopy was performed which demonstrated no specific anal abnormalities. The external sinus on the recurrent fistula tract, which was only about half as far from the anal verge as the initial site was probed and this tracked again to the anterior midline. The mucosa overlying the probe track was divided and dissection of the fistula tract lateral to the sphincter complex was undertaken and the sphincter was partially divided deeply and 0 silk suture was placed around the superficial sphincter as a seton. Hemostasis obtained with electrocautery. Dibucaine- impregnated Gelfoam was placed in the anal canal and the lateral track. Dressing applied. The patient returned to the supine position and brought to recovery room in stable condition. Lety Pond M.D. RG:[id number] [facility] PLAN OF CAREon 03-06-2019 PLAN OF CARE HNO ID: [id number] Author: Rebekah Sultana (Aircraft Engine Mechanic Supervisor) Service: Pharmacy Author Type: ? Type: Plan of Care Filed: 03/06/2019 1:32 PM Note Text: TRUCK RENTAL SERVICE ATTENDANT BEDSIDE DELIVERY SURVEY 1. Patient to use [facility] Bedside Delivery - YES Insurance Information as follows: 2. Insurance card on file - YES 3. Credit card for payment - YES PHARMACY BEDSIDE DELIVERY SERVICE Patient Name: Claudia Reynoso The marked outpatient medications were Filled at: [facility] and delivered to the patient's bedside to pharm p/u Medication List START taking these medications dibucaine 1 % Oint Commonly known as: NUPERCAINAL As needed, as directed X oxyCODONE-acetaminophe n 5-325 mg tablet Commonly known as: PERCOCET Take 1 tablet by mouth every 4 hours as needed for Pain for up to 7 days. X CONTINUE taking these medications VITAMIN Tab Generic drug: Eiafzofb-Kp-Rrm-Fe-FA You might also be taking other medications not listed above. If you have questions about any of your other medications, talk to the person who prescribed them or your Primary Care Provider. Rebekah Sultana (Aircraft Engine Mechanic Supervisor) PAGER: [phone] March 06, 2019 1:32 PM [facility] PT EDon 03-06-2019 PT ED HNO ID: [id number] Author: Briana AnthonyRn) ALONSO Epperson Service: ? Author Type: Registered Nurse Type: Patient Education Filed: 03/06/2019 2:10 PM Note Text: POST OP LEARNING RESPONSE INSTRUCTION PROVIDED TO: Patient and Family member METHOD OF INSTRUCTION: Individual instruction PATIENT / FAMILY RESPONSE: Verbalizes understanding of: POST-OPERATIVE INSTRUCTIONS-Correct actions to take to reduce postoperative complications FOLLOW-UP PLAN: Complete - No need for follow-up SUPPLEMENTAL MATERIAL: None REFERRAL (RECOMMENDATION): None Electronically Signed By: Briana Epperson RN In Department: [facility] SURGERY [facility] PT ED HNO ID: [id number] Author: Ayanna AnthonyRn) ALONSO Ramirez Service: Nursing Author Type: Registered Nurse Type: Patient Education Filed: 03/06/2019 9:28 AM Note Text: PRE OP LEARNING ASSESSMENT PROCEDURE/SURGERY: SURGERY: Preop protocol READINESS TO LEARN COGNITIVE ABILITY: Alert and oriented MOTIVATION TO LEARN: Eager FAMILY SUPPORT: High - Very involved in pt care PATIENT LEARNS BEST BY: Verbal Instruction FACTORS AFFECTING LEARNING: None PHYSICAL LIMITATIONS AFFECTING LEARNING: None Electronically Signed By: Ayanna Ramirez RN In Department: [facility] SURGERY [facility] SURGICAL PATHOLOGYon 019 SURGICAL PATHOLOGY Specimen originated from [facility] Specimen #: [id number] Submitting Physician: LETY POND MD FINAL DIAGNOSIS Anal fistula tract, excision - Fibrous tissue with acute and chronic inflammation, consistent with fistula tract. - No evidence of malignancy. KL/db 03/07/2019 Rd Harrison M.D. (Electronic Signature) _ SPECIMEN SUBMITTED A: ANAL FISTULA TRACT CLINICAL DATA ANAL FISTULA TRACT GROSS DESCRIPTION A. Received in formalin and labeled fistula tract is a 0.9 x 0.7 x 0.7 cm somewhat triangular-shaped portion of rubbery, cauterized, pink-bruce tissue. The specimen is bisected and is entirely submitted in cassette A1. [facility]//03-06-2019 Gross examination performed at [facility], [address] [place] [address] Date of Report: 03/08/2019 Date of Procedure: 03/06/2019 Date of Receipt: 03/06/2019 Submitted by: LETY OPND MD Location: [facility] Diagnostic interpretation performed at [facility], [address] [place] [address]. [place] Number: [id number] [facility] NURSING PROGon 02-28-2019 NURSING PROG HNO ID: [id number] Author: Lita (Rn) ALONSO Phan Service: ? Author Type: Registered Nurse Type: Nursing Progress Note Filed: 02/28/2019 1:11 PM Note Text: PACC Nurse Progress Note History AND Physical: PACC Visit Date: 02/20/19 Original HANDP Date: N/A ED visit Date: N/A Outside HANDP Scanned Date: N/A Labs Within Last 6 Months: N/A Imaging Within Last 12 Months: US 08/29/18 pelvic Cardiac Testing: N/A Last Menstrual Period: LMP Date: 02/13/19 Postmenopausal >1yr: No, S/P Hysterectomy: No BMI Percentile (PEDS): N/A Risk Assessment: N/A Anesthesia Review: N/A Narrative: N/A Pre-op Considerations: N/A Chart Check: COMPLETED Lita Phan RN February 28, 2019 1:10 PM [facility] HOSPon 02-07-2019 HOSP Patient:Claudia Reynoso MRN: Height:5' 8.504(1.74 m) Weight:156 lb 6.4 oz (70.943 kg) Outpatient Medications as of 03/06/19: Iyubxrsv-Tl-Vwv-Fe-FA ( VITAMIN) tab Admission/Clinic Administered Medications as of 03/06/19: lactated ringers infusion clindamycin iv piggyback 900 mg in D5W 50 mL (CLEOCIN) Problem List: Third degree perineal laceration during delivery [O70.20] Family history of defects [Z82.79] Excessive weight gain in , third trimester [O26.03] Dermoid cyst [D36.9] Short interval between pregnancies affecting , antepartum [O09.899] History of maternal third degree perineal laceration, currently [O09.299] Anal fistula [K60.3] Allergies: Cats Date Verified: 02/20/19 Lab Values No results within the last 30 days for the following basenames: K,HCT Progress Notes ([facility]): Tesfaye Milan 02/07/2019 10:56 AM Signed 03-06-2019 EUA Fistula Progress Notes ([facility]): Lety Pond MD 02/07/2019 12:17 PM Signed HISTORY AND PHYSICAL Claudia Reynoso 1980 REFERRING PHYSICIAN: Swetha Poe (Lisbeth)LISBETH CHIEF COMPLAINT: Follow Up HPI: The patient is a 38 year old female with a complaint of a right perirectal abscess. The patient has noticed a perirectal abscess on her right perianal area since October. She had an incision and drainage in May. The site has not resolved. The patient has no history of crohn's disease CT scan demonstrated a persistent tract/cavity and a left ovarian mass consistent with a dermoid. 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 The patient noted a draining fistula ever since childbirth. I performed an examination under anesthesia, anal fistulotomy with seton placement on August 08, 2018. The fistula tract to the anterior midline at the rectovaginal septum and at the time of fistulotomy was noted to have scar tissue consistent with her repair. To be at the time of grade 3 laceration during childbirth. The patient currently notes no issues of fecal incontinence. her appetite has been good. she denies fever, chills or abdominal pain. she does note some but remarkably relatively minimal incisional discomfort. The patient noted on her October 19, 2018 visit that the seton is no longer present. She had no complaints of incontinence and no pain in the area. She now notes an area of granulation tissue that occasionally bleeds near the perianal aspect of her healed incision. She notes a persistent area of granulation tissue which is most likely a persistent superficial fistula. PAST MEDICAL HISTORY Diagnosis Date - Cystic fibrosis screening 2014 neg antepartum CF screen - fracture 5 fractured tibia, playground accident(pt unsure which leg) PAST SURGICAL HISTORY Procedure Laterality Date - FISTULECTOMY/FISTULOTO MY SUBMUSCULAR 08/08/2018 anal fistulectomy w/seton drain - REPAIR ING HERNIA,5+Y/O,REDUCIBL 1989 Hernia repair, inguinal, right Current Outpatient Medications: Tbdpiwou-We-Xvm-Fe-FA ( VITAMIN) tab Take 1 tablet by mouth. No current facility-administered medications for this visit. 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 Tobacco Use Smoking status: Never Smoker Smokeless tobacco: Never Used Substance and Sexual Activity Alcohol use: Yes Alcohol/week: 3.0 oz Types: 1 Cans of Beer (12oz), 1 Mixed Drinks per week Comment: 2-3 drinks a week, not while Drug use: No Sexual activity: Yes Partners: Male Other Topics Concerns: Not on file Social History Narrative Not on file FAMILY HISTORY: FAMILY HISTORY Problem Relation Age of Onset - Arthritis Mother - Hypertension Father - Ischemic Heart Disease Father - other (borderline DM2) Father - Heart Paternal Grandfather - Stroke Maternal Grandfather - Alzheimer's Disease Maternal Grandmother - Arthritis Paternal Grandmother - No Known Problems Sister - No Known Problems Brother - No Known Problems Son - No Known Problems Son REVIEW OF SYMPTOMS: The review of systems data was entered by the nurse and reviewed by me REVIEW OF SYSTEMS: General: The patient denies fatigue, denies weight loss, denies weight gain, denies feeling hot, and denies feelings of cold. Eyes: The patient denies glaucoma, denies eye injury/surgery, does not wear glasses or contacts. Ear/Nose/Throat: The patient denies allergies, denies hayfever, denies ear infections, and denies bloody noses. Cardiovascular: The patient denies chest pain, denies heart disease, denies high blood pressure,denies cardiac stent, denies prior heart attack, denies irregular heart beat, denies high cholesterol, denies poor circulation, denies heart failure, other cardiac issues, denies claudication, denies cold feet, denies peripheral arterial stent. Respiratory: The patient denies tuberculosis, denies pneumonia, denies frequent cough, denies pulmonary embolism, denies shortness of breath, and denies coughing up blood. Gastrointestinal: The patient denies difficulty swallowing, denies acid reflux, denies ulcers, denies vomiting, denies jaundice/hepatitis, denies gallbladder problems, denies black or tarry stools, NOTES hemorrhoids, denies bleeding from rectum, denies diverticulitis, denies constipation, denies diarrhea, denies loss of stool control, and denies hernias. Kidney/Bladder: The patient denies kidney stones, denies urine infections, and denies bloody urine. Skin: The patient denies a history of skin cancer, denies bleeding/changing moles, and denies a history of skin rash. Neurologic: The patient denies a history of epilepsy/convulsions, denies headaches, denies head/spinal injuries, and denies stroke/TIA. Psychiatric: The patient denies psychiatric medications, denies depression, and denies voices, denies substance abuse. Endocrine: The patient denies thyroid disorders, denies diabetes, and denies hormonal problems. Hematologic: The patient denies a history of bruising, denies bleeding, and denies anemia, denies blood clots. Infections: The patient denies a history of measles and mumps, denies rheumatic fever, and denies sexually transmitted diseases. Musculoskeletal: The patient denies back pain/injury, denies back problems, denies sciatica, denies knee/foot trouble, denies arthritis, or denies gout. ? ? When was patient's last Mammogram screening? N/A ? Last Colonoscopy: NA ? Tesfaye Milan PHYSICAL EXAMINATION: General: The patient is 38 year old female, well nourished, well hydrated in no acute distress. The patient is oriented to time, place, and person. VITALS: Blood pressure 116/64, pulse 80, temperature 37.2 ?C (99 ?F), height 172.7 cm (5' 8), weight 70.9 kg (156 lb 3.2 oz), SpO2 96 %, not currently . HEENT: Normal cephalic, ataumatic, pupils are equally round, sclera are anicteric, mucous membranes are moist, oropharynx is clear. Neck has no masses, asymmetry or lymphadenopathy. Thyroid is unremarkable. Respiratory: Clear to auscultation and percussion. Normal respiratory excursion and pattern. Cardiac: Examination is regular rate and rhythm. Abdominal exam: Soft, nontender, with no palpable masses. No hepatosplenomegaly. No palpable hernias. Rectal exam: exam deferred - right lateral perianal area - small sinus a with a cord running to the anal verge consistent with an anal fistula, No significant erythema or fluctuance Extremities: no clubbing, cyanosis or edema. No adenopathy. Other: LABORATORY VALUES: As Noted RADIOLOGIC STUDIES: As Noted Assessment IMPRESSION: likely anal fistula PLAN: I plan to perform an examination under anesthesia, anal fistulotomy, possible seton placement. The planned surgical procedure was discussed extensively with the patient. The risks, benefits and anticipated outcomes of the procedure, the risks and benefits of the alternatives to the procedure, and the roles and tasks of the personnel to be involved, were discussed with the patient. My staff has also explained the procedure in understandable terms and the patient was given the option to take printed material concerning the planned procedure. The patient had the opportunity to ask questions concerning the planned procedure. The patient freely consents to the planned procedure. Anticipated Surgical Procedure/ CPT Code: Examination Under Anesthesia, Anal Fistula - 76774-409 Anticipated Anesthetic: General Patient weight: Blood pressure 116/64, pulse 80, temperature 37.2 ?C (99 ?F), height 172.7 cm (5' 8), weight 70.9 kg (156 lb 3.2 oz), SpO2 96 %, not currently . BMI: Body mass index is 23.75 kg/m?. Planned antibiotic: clindamycin 900mg IVPB agricultural production engineer to OR SCDs needed - Yes Choir Leader Needed - Yes Diagnoses: (K60.3) Anal fistula (primary encounter diagnosis) (L02.31) Abscess of buttock, right My findings have been communicated to Swetha Poe via shared medical record. This note will be forwarded to No primary care provider on file.. Return to Clinic: The patient is instructed to follow-up with me after the testing has been completed. This note was partially generated using Fanzy voice recognition system, and there may be some incorrect words, spellings, and punctuation that were not noted in checking the note before saving. MD Tesfaye Anderson 02/07/2019 11:03 AM Signed REVIEW OF SYSTEMS: General: The patient denies fatigue, denies weight loss, denies weight gain, denies feeling hot, and denies feelings of cold. Eyes: The patient denies glaucoma, denies eye injury/surgery, does not wear glasses or contacts. Ear/Nose/Throat: The patient denies allergies, denies hayfever, denies ear infections, and denies bloody noses. Cardiovascular: The patient denies chest pain, denies heart disease, denies high blood pressure,denies cardiac stent, denies prior heart attack, denies irregular heart beat, denies high cholesterol, denies poor circulation, denies heart failure, other cardiac issues, denies claudication, denies cold feet, denies peripheral arterial stent. Respiratory: The patient denies tuberculosis, denies pneumonia, denies frequent cough, denies pulmonary embolism, denies shortness of breath, and denies coughing up blood. Gastrointestinal: The patient denies difficulty swallowing, denies acid reflux, denies ulcers, denies vomiting, denies jaundice/hepatitis, denies gallbladder problems, denies black or tarry stools, NOTES hemorrhoids, denies bleeding from rectum, denies diverticulitis, denies constipation, denies diarrhea, denies loss of stool control, and denies hernias. Kidney/Bladder: The patient denies kidney stones, denies urine infections, and denies bloody urine. Skin: The patient denies a history of skin cancer, denies bleeding/changing moles, and denies a history of skin rash. Neurologic: The patient denies a history of epilepsy/convulsions, denies headaches, denies head/spinal injuries, and denies stroke/TIA. Psychiatric: The patient denies psychiatric medications, denies depression, and denies voices, denies substance abuse. Endocrine: The patient denies thyroid disorders, denies diabetes, and denies hormonal problems. Hematologic: The patient denies a history of bruising, denies bleeding, and denies anemia, denies blood clots. Infections: The patient denies a history of measles and mumps, denies rheumatic fever, and denies sexually transmitted diseases. Musculoskeletal: The patient denies back pain/injury, denies back problems, denies sciatica, denies knee/foot trouble, denies arthritis, or denies gout. When was patient's last Mammogram screening? N/A Last Colonoscopy: [facility] ANES [place] 08-08-2018 ANES POST HNO ID: [id number] Author: Daniel Rivera Service: Anesthesiology Author Type: Anesthesiologist Type: Anesthesia PostOp Filed: 08/08/2018 2:14 PM Note Text: POST ANESTHESIA EVALUATION NOTE SERVICE DATE: 08/08/2018 SERVICE TIME: 214 : 1980 Vitals: 08/08/18 1044 08/08/18 1315 Temp: 36.9 ?C (98.4 ?F) 36.9 ?C (98.4 ?F) 08/08/18 1044 08/08/18 1315 08/08/18 1330 08/08/18 1345 BP: 117/75 95/56 108/60 106/68 08/08/18 1315 08/08/18 1330 08/08/18 1345 Pulse: 72 65 77 08/08/18 1044 08/08/18 1315 08/08/18 1330 08/08/18 1345 Resp: 16 18 16 16 08/08/18 1044 08/08/18 1315 08/08/18 1330 08/08/18 1345 SpO2: 99% 98% 100% 99% Validated Vital Signs: Yes POST ANES STATUS: No apparent anesthetic complications. The patient is appropriately hydrated with stable respiratory and cardiovascular status. Patient has safe and adequate airway control. The patient has appropriate pain relief and no significant post operative nausea or vomiting. The patient has achieved baseline mental status. Intra-Operative Events: No Significant Anesthesia Events Further assessment by Anesthesia Service: None Other Remarks: SIGNATURE: Daniel Rivera MD PATIENT NAME: Claudia Reynoso DATE: August 08, 2018 TIME: 2:14 PM PAGER/CONTACT #: anesthesia [facility] ANES PREOPon 08-08-2018 ANES PREOP HNO ID: [id number] Author: Daniel Rivera Service: Anesthesiology Author Type: Anesthesiologist Type: Anesthesia PreOp Filed: 08/08/2018 11:26 AM Note Text: ANESTHESIOLOGY DAY OF SURGERY NOTE SERVICE DATE: 08/08/2018 SERVICE TIME: 09.10 : 1980 Procedure(s) (LRB): EXAM UNDER ANESTHESIA RECTAL (Right) ANAL FISTULECTOMY EXTRASPHINCTERIC W/ SETON DRAIN (N/A) Surgeon(s): Lety Pond Estimated body mass index is 23.87 kg/m? as calculated from the following: Height as of this encounter: 172.7 cm (5' 8). Weight as of this encounter: 71.2 kg (157 lb). Most recent hematocrit and potassium results: Hematocrit 36.6 08/02/2017 Potassium 3.9 05/30/2013 ANES DOS/PREOP NOTE: Vitals: 08/08/18 1044 Weight: 71.2 kg (157 lb) Height: 172.7 cm (5' 8) ACTIVE PROBLEM LIST Third Degree Perineal Laceration During Delivery Family History of Defects Excessive Weight Gain in , Third Trimester Dermoid Cyst PAST MEDICAL HISTORY Diagnosis Date - Cystic fibrosis screening 2014 neg antepartum CF screen - fracture 5 fractured tibia, playground accident(pt unsure which leg) PAST SURGICAL HISTORY Procedure Laterality Date - REPAIR ING HERNIA,5+Y/O,REDUCIBL 1989 Hernia repair, inguinal, right FAMILY HISTORY Problem Relation Age of Onset - None Mother - Hypertension Father - Ischemic Heart Disease Father - other (borderline DM2) Father - Heart Paternal Grandfather - Stroke Maternal Grandfather - Alzheimer's Disease Maternal Grandmother - Arthritis Paternal Grandmother Social History: Social History Substance Use Topics - Smoking status: Never Smoker - Smokeless tobacco: Never Used - Alcohol use 3.0 oz/week 1 Cans of Beer (12oz), 1 Mixed Drinks per week Comment: 2-3 drinks a week, not while No current facility-administered medications on file prior to encounter. Current Outpatient Prescriptions on File Prior to Encounter: Wetpwcxd-Tp-Azc-Fe-FA ( VITAMIN) tab Take 1 tablet by mouth. Current Facility-Administered Medications: lactated ringers infusion 30 mL/hr INTRAVENOUS CONTINUOUS Lety Pond Last Rate: 30 mL/hr at 08/08/18 1053 30 mL/hr at 08/08/18 1053 clindamycin 900 mg in D5W 50 mL (CLEOCIN) 900 mg INTRAVENOUS Pre-Op Once Lety Pond Allergies: ALLERGIES Allergen Reactions - Cats Itching swelling eyes DOS EXAM: Adequate NPO status: Yes Anesthetic risks, benefits, alternatives, personnel and consent discussed: Yes Patient agrees to proceed: Yes Previous Anesthesia: No history of adverse event. Airway Assessment: MP 2; Neck ROM: Full ROM without neurologic symptoms; Airway Evaluation: No significant abnormalities Symptoms of Sleep Apnea: None Dentition: Poor dentition Additional Physical Exam: Lungs: Patient health status unchanged since recent history and physical. See history and physical for exam findings. Lungs clear to auscultation. Good diaphragmatic excursion. Cardiac: Patient health status unchanged since recent history and physical. See history and physical for exam findings. normal S1 and S2; no rubs, no murmurs, and no gallops Additional Pertinent Findings: N/A Blood Products: Not anticipated for this procedure. Anesthetic Plan: General, Standard ASA Monitors Pain Management Plan: Parenteral or Oral ASA Class: 3 Other Medical Problems: None Chronic Beta David medication administered within 24 hours: N/A I have interviewed and examined the patient. I have reviewed the medical record and/or the pre-anesthesia evaluation, pertinent labs, and test results. Significant changes in the patient's condition since the History and Physical, not otherwise documented in primary service progress notes: No This contains updated information obtained within 48 hours of Surgery/Procedure. SIGNATURE: Daniel Rivera MD PATIENT NAME: Claudia Reynoso DATE: August 08, 2018 TIME: 11:26 AM CSN: [id number] [facility] BRIEF OP NOTon 08-08-2018 BRIEF OP NOT HNO ID: [id number] Author: Lety Pond Service: General Surgery Author Type: Physician Type: Brief Op Note Filed: 08/08/2018 1:07 PM Note Text: BRIEF OPERATIVE NOTATION FOR SURGICAL PROCEDURE. Claudia Reynoso 1980 [id number] female LOG ID: [id number] Surgery/Procedure Date: 08/08/2018 Incision/Procedure Start Time: 12:39 PM Incision Close/Procedure End Time: 12:59 PM Surgeon(s)/Procedurali st(s) and Choir Leader(s): Surgeon(s) and Role: * Lety Pond - Primary Registered Nurse Reconciliation Manager: Diana Sen) ALONSO Mayberry REFERRING PHYSICIAN: Outpatient DEPT: K[facility]ITH[facility] PROVIDER: Morgan POS: [id number] ANESTHESIA: Monitored Anesthesia Care ASA CLASS: 2 - mild DIAGNOSIS: anal fistula PROCEDURE: Examination Under Anesthesia, Anal Fistula with Seton - [id number] IVF: 300 EBL: 25 Specimens: fistula tract ADDITIONAL DIAGNOSES: FINDINGS: anterior tracing COMPLICATIONS: None PMHx - PAST MEDICAL HISTORY Diagnosis Date - Cystic fibrosis screening 2014 neg antepartum CF screen - fracture 5 fractured tibia, playground accident(pt unsure which leg) COMORBIDITIES - None Post Op Occurrences - None Wound Classification - Contaminated Operative note dictated in the dictation system. - [id number] Lety Pond MD [facility] HISTORY PHYSICALon 8 HISTORY PHYSICAL HNO ID: [id number] Author: Lety Pond Service: General Surgery Author Type: Physician Type: HANDP Filed: 08/08/2018 11:39 AM Note Text: HISTORY AND PHYSICAL ? Claudia Angeles 1980 ? ? REFERRING PHYSICIAN: Swetha Poe PA (Pa) ? CHIEF COMPLAINT: Follow Up ? HPI: The patient is a 38 year old female with a complaint of a right perirectal abscess. The patient has noticed a perirectal abscess on her right perianal area since October. She had an incision and drainage in May. The site has not resolved. The patient has no history of crohn's disease ? CT scan demonstrated a persistent tract/cavity and a left ovarian mass consistent with a dermoid. ? The patient is being seen by me today at the request of Swetha Poe PA (Pa) my opinion and advice regarding likely anal fistula. ? PAST?MEDICAL?HISTORY PAST MEDICAL HISTORY Diagnosis Date - Cystic fibrosis screening 2014 ? neg antepartum CF screen - fracture 5 ? fractured tibia, playground accident(pt unsure which leg) ? ? PAST?SURGICAL?HISTORY PAST SURGICAL HISTORY Procedure Laterality Date - REPAIR ING HERNIA,5+Y/O,REDUCIBL ? 1989 ? Hernia repair, inguinal, right ? ? ? CURRENT?MEDICATIONS ? Current Outpatient Prescriptions: cephALEXin (KEFLEX) 500 mg capsule Take 1 capsule by mouth four times daily. (Patient not taking: Reported on 06/13/2018 ) Fuyfyama-Vr-Hfe-Fe-FA ( VITAMIN) tab Take 1 tablet by mouth. ? No current facility-administered medications for this visit. ? ALLERGIES: Cats ? PERSONAL HISTORY: SOCIAL?HISTORY Social History Marital status: Spouse name: Wes Years of education: 19 Number of children: 0 ? 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 Social History Main Topics Smoking status: Never Smoker ? Smokeless tobacco: Never Used Alcohol use: Yes 3.0 oz/week Cans of Beer (12oz): 1, Mixed Drinks: 1 per week Comment: 2-3 drinks a week, not while Drug use: No Sexual activity: Yes Partners with: Male ? ? FAMILY HISTORY: FAMILY?HISTORY FAMILY HISTORY Problem Relation Age of Onset - None Mother ? - Hypertension Father ? - Ischemic Heart Disease Father ? - other (borderline DM2) Father ? - Heart Paternal Grandfather ? - Stroke Maternal Grandfather ? - Alzheimer's Disease Maternal Grandmother ? - Arthritis Paternal Grandmother ? ? ? REVIEW OF SYMPTOMS: The review of systems data was entered by the nurse and reviewed by me ? Nursing Notes: Nia Rush LPN ?06/13/2018 10:03 AM ?Signed REVIEW OF SYSTEMS: ?General:???The patient denies fatigue, denies weight loss, denies weight gain, denies feeling hot, and denies feelings of cold. ?Eyes: ?The patient denies glaucoma, denies eye injury/surgery, does not wear glasses or contacts. ?Ear/Nose/Throat: ?The patient denies allergies, denies hayfever, denies ear infections, and denies bloody noses. ?Cardiovascular: ?The patient denies chest pain, denies heart disease, denies high blood pressure,denies cardiac stent, denies prior heart attack, denies irregular heart beat, denies high cholesterol, ?denies poor circulation, denies heart failure, other cardiac issues, denies claudication, denies cold feet, denies peripheral arterial stent. ?Respiratory: ?The patient denies tuberculosis, denies pneumonia, denies frequent cough, denies pulmonary embolism, denies shortness of breath, and denies coughing up blood. ?Gastrointestinal: ?The patient denies difficulty swallowing, denies acid reflux, denies ulcers, denies vomiting, denies jaundice/hepatitis, denies gallbladder problems, denies black or tarry stools, NOTES hemorrhoids, denies bleeding from rectum, denies diverticulitis, denies constipation, denies diarrhea, denies loss of stool control, and NOTES hernias. ?Kidney/Bladder: ?The patient denies kidney stones, denies urine infections, and denies bloody urine. ?Skin: ?The patient denies a history of skin cancer, denies bleeding/changing moles, and denies a history of skin rash. ?Neurologic: ?The patient denies a history of epilepsy/convulsions, denies headaches, denies head/spinal injuries, and denies stroke/TIA. ?Psychiatric: ?The patient denies psychiatric medications, denies depression, and denies voices, denies substance abuse. ?Endocrine: ?The patient denies thyroid disorders, denies diabetes, and denies hormonal problems. ?Hematologic: ?The patient denies a history of bruising, denies bleeding, and denies anemia, denies blood clots. ?Infections: ?The patient denies a history of measles and mumps, denies rheumatic fever, and denies sexually transmitted diseases. ?Musculoskeletal: ?The patient denies back pain/injury, denies back problems, denies sciatica, denies knee/foot trouble, denies arthritis, or denies gout. ? ? When was patient's last Mammogram screening? N/A ? ?Last Colonoscopy: ?None ? Nia Rush LPN PHYSICAL EXAMINATION: ? General: The patient is 38 year old female, well nourished, well hydrated in no acute distress. The patient is oriented to time, place, and person. ? VITALS: currently . ? HEENT: Normal cephalic, ataumatic, pupils are equally round, sclera are anicteric, mucous membranes are moist, oropharynx is clear. Neck has no masses, asymmetry or lymphadenopathy. Thyroid is unremarkable. ? Respiratory: Clear to auscultation and percussion. Normal respiratory excursion and pattern. ? Cardiac: Examination is regular rate and rhythm. ? Abdominal exam: Soft, nontender, with no palpable masses. No hepatosplenomegaly. No palpable hernias. ? Rectal exam: exam deferred - right lateral perianal area - small sinus a with a cord running to the anal verge consistent with an anal fistula, No significant erythema or fluctuance ? Extremities: no clubbing, cyanosis or edema. No adenopathy. ? Other: ? ? LABORATORY VALUES: As Noted ? RADIOLOGIC STUDIES: As Noted ? Assessment IMPRESSION: likely anal fistula ? PLAN: I plan to perform an examination under anesthesia, anal fistulotomy, possible seton placement. The planned surgical procedure was discussed extensively with the patient. The risks, benefits and anticipated outcomes of the procedure, the risks and benefits of the alternatives to the procedure, and the roles and tasks of the personnel to be involved, were discussed with the patient. My staff has also explained the procedure in understandable terms and the patient was given the option to take printed material concerning the planned procedure. The patient had the opportunity to ask questions concerning the planned procedure. The patient freely consents to the planned procedure. ? Anticipated Surgical Procedure/ CPT Code: Examination Under Anesthesia, Anal Fistula - 77315-022 ? Anticipated Anesthetic: General ? Patient weight: currently . BMI: There is no height or weight on file to calculate BMI. ? Planned antibiotic: clindamycin 900mg IVPB agricultural production engineer to OR ? SCDs needed - Yes ? Choir Leader Needed - Yes ? Diagnoses: (D36.9) Dermoid cyst (primary encounter diagnosis) (L02.31) Abscess of buttock, right (K60.3) Anal fistula ? My findings have been communicated to Deepika via shared medical record. This note will be forwarded to No primary care provider on file.. Return to Clinic: The patient is instructed to follow-up with me after the testing has been completed. ? This note was partially generated using [employer]zy voice recognition system, and there may be some incorrect words, spellings, and punctuation that were not noted in checking the note before saving. ? Lety T Meg, MD [facility] NURSING PROGon 08-08-2018 NURSING PROG HNO ID: [id number] Author: Germania AnthonyRn) ALONSO Callahan Service: Nursing Author Type: Registered Nurse Type: Nursing Progress Note Filed: 08/08/2018 2:50 PM Note Text: Nursing Progress Note Patient Name: Claudia Reynoso Patient Location: [place] [facility] [facility] __ 1355 Pt received in ASCu on cart from PACU. No rectal bleeding noted. Snack given. This note was completed by: Germania Callahan RN 3281 IV removed. Site without redness or swelling. Homegoing instructions given. Pt verbalizes understanding. Pt and instructed in sitz baths. Both verbalize good understanding. 8507 Pt discharged to home via wheelchair to car accomp by staff and family in stable cond. [facility] OPERATIVE NOon 08-08-2018 OPERATIVE NO HNO ID: [id number] Author: Lety Pond Service: General Surgery Author Type: Physician Type: Operative Report Filed: 08/09/2018 9:05 AM Note Text: [facility] - Operative Report CLAUDIA REYNOSO : 1980 AGE: 38. SEX: F PATIENT TYPE: [place] [facility] [place] [facility] LOCATION: [facility] ATTENDING PHYSICIAN: CL NUMBER: [id number] DATE OF SURGERY/PROCEDURE: 08/08/2018 INCISION/PROCEDURE START TIME: 12:39. INCISION CLOSE/PROCEDURE END TIME: 12:59. PREOPERATIVE DIAGNOSIS: Chronic perianal drainage consistent with anal fistula. POSTOPERATIVE DIAGNOSIS: Right anterior anal fistula tract into the anterior midline. No other significant abnormalities noted. SURGEON: Lety Pond M.D. QC ANALYST: Registered Nurse Reconciliation Manager: Diana AnthonyRn) ALONSO [place]berry SURGERY/PROCEDURE: Examination under anesthesia, anal fistulotomy with seton placement. ANESTHESIA: Anesthesiologist, Dr. Sanchez. LOG ID NUMBER: [id number]. ASA: 2. IV FLUIDS: Approximately 300 cc. EBL: 25 cc. URINE OUTPUT: No catheter. SPECIMENS: Fistula tract tissue. DRAINS: None. COMPLICATIONS: None. DISPOSITION: The patient was taken to PACU in a stable condition. DESCRIPTION OF PROCEDURE: The patient was brought to the operative suite. Sign-in was performed verifying the patient, site, procedure, and position. The site was not marked as there was fistula opening on her right posterior buttock. Following sign-in, the patient was transferred from supine to the prone eliezer-knife position and the perianal area was prepped and draped in the usual fashion. Following monitored anesthetic care, time-out was performed verifying patient, site, procedure, and position. Bidigital exam revealed no obvious tracts, specifically the tract did not go right into the anterior or straight in following Goodsall's rule. Hydrogen peroxide failed to demonstrate a true dentate line opening. A fistula probe was then placed and the probe tracked very easily to the anterior midline. It should be noted that the patient had a grade 3 laceration during childbirth and had a repair of that episiotomy/tear when she had her childbirth late last year. It should be also noted that she has had chronic problems with this persistent tract ever since that procedure. Given this, local anesthetic was injected in the skin. The fistula tract overlying the superficial skin and subcutaneous fat was divided and opened down to the probe at the level of what was felt to be encompassing the external anal sphincter. Specifically in the anterior midline, there was encountered scar tissue consistent with her grade 3 laceration. The probe did not easily pass into the anal canal, but the probe seemed to go just proximal to the dentate line in the anterior anal verge again at exactly 6 o'clock. At this point, the fistula probe was passed through this. The mucosa overlying the sphincter complex was excised and sent to Pathology. The deeper sphincter complex was partially transected and an 0 silk seton was passed around the superficial sphincter to prevent complete partial injury of the sphincter. While this did not seem to be exceedingly deep, given the fact that she had anterior repair, I felt the most prudent maneuver was to place a seton anteriorly. Hemostasis was obtained with electrocautery. 0.5% Marcaine and 1% lidocaine was injected along the perianal skin. Dibucaine impregnated Gelfoam was placed in the anal canal. Dressings and a clay-pad were applied. This was held in place with mesh pants. She was returned to the supine position and brought to recovery in stable condition. Lety Pond M.D. 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 Patient to use [facility] Bedside Delivery - YES 2. If fax, patient would like us to fax prescriptions to Pharmacy of choice a. Pharmacy: b. Location: c. Phone: 3. Insurance card on file - YES 4. Credit card for payment - YES PHARMACY BEDSIDE DELIVERY SERVICE Patient Name: Claudia Reynoso The marked outpatient medications were Filled at: [facility] and delivered to the patient's bedside to pharm p/u Medication List START taking these medications dibucaine 1 % Oint Commonly known as: NUPERCAINAL As needed as directed X oxyCODONE-acetaminophe n 5-325 mg tablet Commonly known as: PERCOCET Take 1 tablet by mouth every 6 hours as needed for Pain for up to 7 days. X CONTINUE taking these medications VITAMIN Tab Generic drug: Vpdrujzg-Vc-Xku-Fe-FA You might also be taking other medications not listed above. If you have questions about any of your other medications, talk to the person who prescribed them or your Primary Care Provider. Rebekah Sultana ([email or web address]) PAGER: [phone] August 08, 2018 3:01 PM [facility] PT EDon 08-08-2018 PT ED HNO ID: [id number] Author: Germania AnthonyRn) ALONSO Callahan Service: Nursing Author Type: Registered Nurse Type: Patient Education Filed: 08/08/2018 2:38 PM Note Text: POST OP LEARNING RESPONSE INSTRUCTION PROVIDED TO: Patient and family member METHOD OF INSTRUCTION: Individual instruction Written instruction - handouts Verbal instruction PATIENT / FAMILY RESPONSE: Information received as demonstrated by interest and questions FOLLOW-UP PLAN: Patient instructed to call with any further issues SUPPLEMENTAL MATERIAL: Instruction on use of Sitz baths Post op discharge instructions REFERRAL (RECOMMENDATION): None Electronically Signed By: Germania Callahan RN In Department: [facility] SURGERY [facility] PT ED HNO ID: [id number] Author: Brisa (Rn) ALONSO Gipsno Service: Nursing Author Type: Registered Nurse Type: Patient Education Filed: 08/08/2018 11:00 AM Note Text: PRE OP LEARNING ASSESSMENT PROCEDURE/SURGERY: fistulotomy READINESS TO LEARN COGNITIVE ABILITY: Alert and oriented MOTIVATION TO LEARN: Interested FAMILY SUPPORT: High - Very involved in pt care PATIENT LEARNS BEST BY: Verbal Instruction FACTORS AFFECTING LEARNING: None PHYSICAL LIMITATIONS AFFECTING LEARNING: None Electronically Signed By: Brisa Gipson RN In Department: [facility] SURGERY [facility] SURGICAL PATHOLOGYon 018 SURGICAL PATHOLOGY Specimen originated from [facility] Specimen #: [id number] Submitting Physician: LETY POND MD FINAL DIAGNOSIS Site not specified, excision - Hemorrhoids. - No other significant pathologic alteration. JRG/lisa/08/10/18 Derrell Sarabia M.D. (Electronic Signature) _ SPECIMEN SUBMITTED A: FISTULA CLINICAL DATA DERMOID CYST [D36.9], LMP: HCG NEGATIVE 08/08/2018 GROSS DESCRIPTION A. Received in formalin labeled fistula tract are two bruce-white irregular portions of skin that range from 1.5 to 1.9 cm in greatest dimension. The skin surfaces are bruce-white and wrinkled. The specimen is sectioned to reveal bruce-white to pink fibrous cut surfaces with a 0.2 x 0.1 x 0.1 cm focal area of hemorrhage within the larger portion of tissue. A fistula tract is not grossly identified. No lesions or additional gross abnormalities are identified. Geographic Information System Analyst sections are submitted in one cassette. Gross examination performed at [facility], [address] [place] [address] AEM/lbk 08/09/2018 Date of Report: 08/10/2018 Date of Procedure: 08/08/2018 Date of Receipt: 08/08/2018 Submitted by: LETY POND MD Location: [facility] Diagnostic interpretation performed at [facility], [address] [place] [address]. Normal [facility] Comment on above: Performed By: #### P ATHS ####[facility] [id number] [place], [place] [phone] NURSING PROGon 08-06-2018 NURSING PROG HNO ID: [id number] Author: Kesha (Rn) ALONSO Watt Service: (none) Author Type: Registered Nurse Type: Nursing Progress Note Filed: 08/06/2018 12:05 PM Note Text: PACC Nurse Progress Note History AND Physical: PACC Visit Date: none. See OV 07/10/2018 with Stefanie BOB for HANDP Original HANDP Date: 07/10/2018 ED visit Date: N/A Outside HANDP Scanned Date: N/A Labs Within Last 6 Months: N/A Imaging Within Last 12 Months: CT Scan abdomen and pelvis results from 07/06/2018 in [facility] US pelvis transvaginal results from 07/12/2018 in [facility] Cardiac Testing: N/A Last Menstrual Period: LMP Date: gave 9 months ago. Breast feeding, no periods currently Postmenopausal >1yr: No, S/P Hysterectomy: No BMI Percentile (PEDS): N/A Risk Assessment: N/A Anesthesia Review: N/A Narrative: Called patient and pre op instructions given Pre-op Considerations: No PACC. See OV 07/10/2018 with Stefanie White for HANDP LMP gave 9 months ago. Breast feeding, no periods currently Chart Check: Completed Kesha Watt RN August 06, 2018 12:03 PM PATIENT PREOPERATIVE INSTRUCTIONS No ref. provider found has scheduled you for your procedure at this surgery center: [facility]: [phone] -- [address] [facility] [address]. Blood Thinning Medications: - Stop NSAIDS (Ibuprofen, Advil, Aleve, Motrin, Celebrex, Mobic, etc.) 7 days before surgery, as directed by your surgeon. - Stop Vitamin E, ALL multi-vitamins, herbals and dietary supplements last dose 08/05/2018 days before surgery. Dietary Restrictions: - No solid food after midnight. - You may have 12 ounces of clear liquids (water, clear juices such as apple juice or gatorade, carbonated beverages, clear tea, black coffee, jello) until 2 hours before scheduled arrival at facility. - follow Dr. Pond's prep. States on clear liqued 08/07/2018 Pain Medications: Medications: Approved medications to take the morning of surgery with a sip of water: none If you start any new medications after today's visit, please contact the surgeon's office. Important Reminders: - Candy, mints, gum and tobacco products are NOT permitted the morning of surgery. - Hearing aids, dentures and glasses may be worn the morning of surgery. - NO jewelry, body piercings, makeup, hairpins or contacts are to be worn the day of surgery. If you develop symptoms such as a fever, cold, or flu, or have other changes to your health within TWO DAYS of scheduled surgery or the morning of surgery, please contact the surgery center above. Personal Belongings: - Leave ALL valuables and money at home or with family members. Arrival Time for Surgery: - The Surgery Center or hospital where you are having surgery will call the afternoon before surgery (or Monday for Monday surgery) with a scheduled arrival time. - If you have not heard by 4 pm, please contact the surgery center above. Please be aware that emergency situations arise, which may delay or change your surgical time. If this happens, we will notify you as soon as possible and regret any inconvenience. Kesha Watt RN [facility] HOSPon 07-10-2018 HOSP Patient:Claudia Reynoso MRN: Height:5' 8(1.727 m) Weight:157 lb (71.215 kg) Outpatient Medications as of 08/08/18: Zoenpnej-Es-Dum-Fe-FA ( VITAMIN) tab Admission/Clinic Administered Medications as of 08/08/18: lactated ringers infusion clindamycin 900 mg in D5W 50 mL (CLEOCIN) lactated ringers infusion meperidine (PF) 12.5 mg injection (DEMEROL) ketorolac 30 mg injection (TORADOL) prochlorperazine 10 mg injection (COMPAZINE) metoclopramide HCl 10 mg tab(s) (REGLAN) metoclopramide HCl 10 mg injection (REGLAN) Problem List: Third degree perineal laceration during delivery [O70.20] Family history of defects [Z82.79] Excessive weight gain in , third trimester [O26.03] Dermoid cyst [D36.9] Allergies: Cats Date Verified: 08/08/18 Lab Values No results within the last 30 days for the following basenames: K,HCT Progress Notes ([facility]): Joanna Patel MD 07/24/2018 4:05 PM Signed Left patient a message to call the office Will not be able to coordinate the l/s ovarian cystectomy with I would like to discuss plan of care with the patient I can call her again on Monday when I am back in the office MD Patsy Patel RN 07/27/2018 11:57 AM Signed Patient hasn't called back if you wanted to try again today. Patsy Huerta LPN 07/27/2018 3:29 PM Signed Pt returned call and Dr Patel had to go to [facility]. Pt stated that Dr Patel could call her if she got back into the office today or even next week or she could let the nurses know the situation and they could relay the information to her as well. Pt voiced understanding of the physician being needed at the hospital. Lisa Patel MD 07/27/2018 4:36 PM Signed Discussed plan of care with patient She will get a repeat US in Novemeber Patient will proceed with surgery after that US if needed She will call with pelvic pain or other concerns Joanna Patel MD Progress Notes ([facility]): Joanna Patel MD 07/17/2018 11:35 AM Signed Claudia Reynoso is a 38 year old female who presents for ovarian cyst. HPI: Patient presents with ovarian cysts. She had a CT with in evaluation for a possible anal fistula. She denies pain in her pelvis or abdomen. PAST MEDICAL HISTORY Diagnosis Date - Cystic fibrosis screening 2014 neg antepartum CF screen - fracture 5 fractured tibia, playground accident(pt unsure which leg) PAST SURGICAL HISTORY Procedure Laterality Date - REPAIR ING HERNIA,5+Y/O,REDUCIBL 1989 Hernia repair, inguinal, right FAMILY HISTORY Problem Relation Age of Onset - None Mother - Hypertension Father - Ischemic Heart Disease Father - other (borderline DM2) Father - Heart Paternal Grandfather - Stroke Maternal Grandfather - Alzheimer's Disease Maternal Grandmother - Arthritis Paternal Grandmother Social History Marital status: Spouse name: Wes Years of education: 19 Number of children: 0 Occupational History 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 (Patient not taking: Reported on 06/13/2018 ) Vuafafjv-Ha-Nhm-Fe-FA ( VITAMIN) tab Take 1 tablet by mouth. No current facility-administered medications for this visit. Allergies As of Date: 07/17/2018 Allergen Noted Reaction CATS 04/14/2008 Itching Fully Assessed 07/11/2018 Allergies and current medication updated:Yes EXAM: There were no vitals taken for this visit. GENERAL: pleasant, female in no apparent distress ASSESSMENT AND PLAN: 38yo female with left ovarian dermoid AND complex ovarian cyst Discussed R/B/A of observation vs surgical management. All questions answered. Patient wishes to proceed with surgery. Plan to coordinate with . More than 15 minutes were spent in face to face time. Joanna Patel MD Previous Version Normal [facility] Vital Signs Date Time Vital Sign Value Performing Clinician Eric rojas 05-03-2024 15:16-0400 Body height 172.7 cm Joanna Patel MD Work Phone: [facility] 05-03-2024 15:16-0400 Body mass index (BMI) [Ratio] 27.22 kg/m2 Joanna Patel MD Work Phone: [facility] 05-03-2024 15:16-0400 Body weight 81.19 kg Joanna Patel MD Work Phone: [facility] 05-03-2024 15:16-0400 Diastolic blood pressure 70 mm[Hg] Joanna Patel MD Work Phone: [facility] 05-03-2024 15:16-0400 Systolic blood pressure 112 mm[Hg] Joanna Patel MD Work Phone: [facility] Encounters Encounter Date Encounter Type Care Provider Facility Start: 04-15-2025 ambulatory [facility] Eric harveyy:[facility] Start: 04-10-2025 Encounter for other preprocedural examination [facility] Start: 02-19-2025 End: 02-19-[address] JOANNA PATEL Facility:[facility] Start: 02-19-2025 End: 02-19-[address] JOANNA PATEL [facility] Start: 05-03-2024 End: 05-03-2024 Patient encounter procedure Joanna Patel MD Work Phone: OB/Gynecology Comment on above: Encounter for gyneco logical examination (general) (routine) without abnormal findings (Primary Dx); Screening for cervical cancer; Encounter for screening for human papillomavirus (HPV); Encounter for screening mammogram for breast cancer; Colon cancer screening Start: 05-03-2024 End: 05-03-2024 Patient encounter status Joanna Patel MD Work Phone: [facility] Start: 05-03-2024 End: 05-03-2024 ambulatory JOANNA PATEL Facility:[facility] Start: 05-03-2024 Encounter for gynecological examination (general) (routine) without abnormal findings JOANNA PATEL [facility] Procedures Date Procedure Procedure Detail Performing Clinician Start: 05-30-2013 Lipid 1996 panel - S mirlande or Plasma Joanna Patel MD Work Phone: Plan of Treatment Date Care Activity Detail Author Start: 03-27-2030 Urine microalbumin profile DTaP,Tdap,Td Vaccine (4 - Td or Tdap) [facility] Start: 06-16-2024 Influenza vaccination Influenza Vacc ine (#1) [facility] Start: 2024 Diabetes Screening Diabetes Screenin g [facility] Start: 2024 Lipid panel Lipid Screening [facility] Start: 2024 Screening for malign ant neoplasm of colon [facility] Start: 10-16-2023 Behavioral Health Screening Behavioral Health Screening [facility] Start: 06-16-2023 Covid-19 Vaccine () Covid-19 Vaccine () [facility] Start: 01-19-2021 Screening for malign ant neoplasm of cervix Cervical Cancer Screening [facility] Start: 2019 Screening for malign ant neoplasm of breast Mammogram Screening [facility] Start: 1998 Hepatitis B Vaccine (1 of 3 - 19+ 3-dose series) Hepatitis B Vaccine (1 of 3 - + 3-dose series) [facility] End: 06-02-2025 DBT Breast - bilateral screening POOJA SCREENING [facility] Routine Encounter for gynecological examination (general) (routine) without abnormal findings Encounter for screening mammogram for breast cancer 1 Occurrences starting 05/03/2024 until 06/02/2025 [facility] Work Phone: Comment on above: 1 Occurrences starti ng 05/03/2024 until 06/02/2025 PAP TEST PAP TEST Lab Rou evelyne Encounter for gynecological examination (general) (routine) without abnormal findings Screening for cervical cancer Encounter for screening for human papillomavirus (HPV) 05/03/2024 3:39 PM EDT [facility] End: 05-03-2025 Screening colonoscopy COLONOSCOPY SCREENING Endoscopy Routine Colon cancer screening 1 Occurrences starting 05/03/2024 until 05/03/2025 [facility] Comment on above: 1 Occurrences starti ng 05/03/2024 until 05/03/2025 Immunizations Immunization Date Immunization Notes Care Provider Monserrat yin 03-27-2020 tetanus toxoid, redu moshe diphtheria toxoid, and acellular pertussis vaccine, adsorbed Joanna Patel MD Work Phone: [facility] 08-02-2017 tetanus toxoid, redu moshe diphtheria toxoid, and acellular pertussis vaccine, adsorbed Joanna Patel MD Work Phone: [facility] Work Phone: 07-05-2017 influenza, injectabl e, quadrivalent, contains preservative Joanna Patel MD Work Phone: [facility] 07-05-2017 influenza virus vaccine, unspecified formulation Joanna Patel MD Work Phone: [facility] 09-30-2015 tetanus toxoid, redu moshe diphtheria toxoid, and acellular pertussis vaccine, adsorbed Joanna Patel MD Work Phone: [facility] Work Phone: 07-08-2015 influenza, seasonal, injectable Joanna Patel MD Work Phone: [facility] 07-25-2013 influenza virus vaccine, unspecified formulation Joanna Patel MD Work Phone: [facility] Work Phone: Payers Date Payer Category Payer Self-pay 2023 Unknown [id number] 2022 Unknown [id number] 1980 Unknown [id number] Unknown [id number] Social History Date Type Detail Facility Tobacco smoking stat [facility] Never smoked tobacco [facility] Start: 05-03-2024 Alcohol intake Current drinke r of alcohol (finding) [facility] Start: 07-27-2020 End: 05-03-2024 Alcohol intake [facility] Start: 07-27-2020 End: 05-03-2024 Tobacco use panel [facility] Last EPDS Self Harm Result Not on file [facility] Start: 04-20-2017 Alcohol Comment 2-3 drinks a w [place], not while [facility] Start: 1980 Sex Assigned At Not on file [facility] Tobacco smoking status [facility] Sex Assigned At Female [facility] Start: 02-10-2025 Sex Female (finding) [facility] Instructions 05-03-2024 Patient Instructions Note Date & Type Note Facility 05-03-2024 Instructions Joanna Patel MD - 05/03/2024 3:27 PM EDT Images from the original note were not included. Bowel Preparation Instructions for: Miralax-Gatorade Preparations IF YOU DO NOT FOLLOW THESE DIRECTIONS, YOUR COLONOSCOPY WILL BE CANCELLED. Javier Instructions: Your bowel must be empty so that your doctor can clearly view your colon. Follow all of the instructions in this handout EXACTLY as they are written. Do NOT eat any solid food the ENTIRE day before your colonoscopy. Buy your bowel preparation at least 5 days before your colonoscopy. Four (4) Dulcolax laxative tablets containing 5mg of bisacodyl each (NOT Dulcolax stool softener) One (1) 8.3oz. bottle Miralax (238 grams) or generic equivalent 2 x 32oz. Bottles of Gatorade (NOT RED) Diabetic Patients: Use G2 (Gatorade 2) TRANSPORTATION on the Day of Your Exam A responsible adult MUST be present with you at Check In prior to your colonoscopy and REMAIN in the endoscopy area until you are discharged. You are NOT ALLOWED to drive, take a taxi or bus, or leave the Endoscopy Center ALONE. If you do not have a responsible set key driver (family member or friend) with you to take you home, your exam cannot be done with sedation and will be cancelled. Calcium and Vitamin D Supplementation (from the National Institutes of Health Office of Dietary Supplements 2011) Calcium is required by the body for blood vessel, muscle, hormone and nerve functioning. Most of the body's calcium is stored in the bones and teeth where it supports structure and function. Bone is continuously broken down and reformed. When bone breakdown exceeds formation, especially in postmenopausal women, bone loss can increase the risk of osteoporosis and fractures. In addition to low calcium intake, women who smoke, have a family history of osteoporosis, are thin, or , or who take certain medications such as cancer chemotherapy, seizure mediations and steroids are at increased risk of osteoporosis. The calcium requirements in women change with age. The National Institutes of Health (NIH) recommends: 1000mg elemental calcium for premenopausal women age 19-50 1200mg elemental calcium for postmenopausal women and all women over 50 Milk, yogurt, and cheese are rich natural sources of calcium and are the major food contributors in the [place]. For example, 8oz of milk (whole, lowfat or skim) contains about 300mg calcium, 8oz of yogurt contains 415mg. Nondairy sources include salmon and sardines and vegetables, such as Nigerian cabbage, kale, and broccoli. Foods fortified with calcium include many fruit juices, tofu and cereals. For more food calcium content information, visit http://ods.od.nih.gov/factsheets/calcium. Calcium supplements come in several different forms. Remember that the recommendations are for millgrams (mg) of elemental calcium which may be less than the total weight of the supplement. The amount of elemental calcium is required to be printed on the label. Calcium carbonate is the least expensive form. It must be taken on a full stomach to be properly absorbed. Some patients may experience gas or constipation. Calcium phosphate and calcium citrate may be taken either with or without food and tend to have less side effects but are generally more expensive. Because of its ability to neutralize stomach acid, calcium carbonate is found in some lnnu-chi-kgbvafo antacid products, such as Tums and Rolaids . Depending on its strength, each chewable pill or softchew provides 200 to 400 mg of elemental calcium. The percentage of calcium absorbed depends on the total amount of elemental calcium consumed at one time. Absorption is highest in doses <500mg. So a woman who takes 1,000mg/day of calcium from supplements should split the dose and take 500mg at two separate times during the day. Too much calcium can cause kidney stones, constipation, difficulty absorbing other nutrients and calcium buildup in blood vessels. Women under 50 should not exceed 2500mg/day (2000mg/day for women over 50) of calcium from food and supplements. Excessive alcohol and caffeine intake can inhibit absorption of calcium. Calcium can reduce the absorption of some medications if taken at the same time of day (bisphosphonates, thyroid medication, Phenytoin and other seizure medications, some antibiotics and iron supplements). Vitamin D promotes calcium absorption in the gut and maintains adequate blood levels of calcium and phosphate for normal bone growth and bone remodeling. Vitamin D also helps regulate cell growth as well as nerve, muscle and immune system function. Vitamin D is produced in the skin as a result of ultraviolet sunlight rays and must be altered in the liver and kidney to become its active form. Recommended intake according to the National Institutes of Health is 600 International Units (IU) for girls and women ages 1-70 and 800 IU for women over 70. Very few foods in nature contain vitamin D. The flesh of fatty fish (such as salmon, tuna, and mackerel) and fish liver oils are among the best sources. Small amounts of vitamin D are found in beef liver, cheese, mushrooms and egg yolks. Most people meet at least some of their vitamin D needs through exposure to sunlight. Season, time of day, length of day, cloud cover, smog, skin melanin content, and sunscreen are among the factors that affect UV radiation exposure and vitamin D synthesis. Despite the importance of the sun for vitamin D synthesis, it is prudent to limit exposure of skin to sunlight and avoid tanning beds. UV radiation is a carcinogen responsible for most of the estimated 1.5 million skin cancers that occur annually in the [place]. Lifetime cumulative UV damage to skin is also responsible for some age-associated dryness and other cosmetic changes. In supplements and fortified foods, vitamin D is available in two forms, D2 (ergocalciferol) and D3 (cholecalciferol). The two are equivalent at normal supplement doses. For women who require high supplement doses because of vitamin D deficiency, D3 may work better to raise blood levels. Some medications can prevent proper absorption of Vitamin D. These include laxatives, corticosteroids like prednisone, the seizure drugs phenobarbital and phenytoin, the weight-loss drug orlistat ( Xenical and AlliTM) and the cholesterol-lowering drug cholestyramine (Questran , LoCholest , and Prevalite ). Talk to your doctor about adjusting your recommended daily vitamin D dosage if you take these medications. You should not exceed 4000 mg of vitamin D supplementation daily unless specifically prescribed by your doctor. Please bring a list of all of your current medications, including any Hftn-ekr-Fufdzvz medications with you. Medications If you take insulin, diabetic medications or blood thinners such as Coumadin (warfarin), Plavix (clopidogrel), Ticlid (ticlopidine hydrochloride), Agrylin (anagrelide), Xarelto (Rivaroxaban), Pradaxa (Dabigatran), Eliquis (Apixaban), and Effient (Prasugrel). You MUST call the doctors who orders those medicines for instructions on altering the dosage before your colonoscopy. All other medications should be taken the day of the exam with a sip of water including ASPIRIN. Five (5) Days Before Your Colonoscopy Do NOT take medicines that stop diarrhea - such as Imodium, Kaopectate, or Pepto Bismol. Do NOT take fiber supplements - such as Metamucil, Citrucel, or Perdiem. Do NOT take products that contain iron - such as multi-vitamins (the label lists what is in the products). Three (3) Days Before Your Colonoscopy Do NOT eat high-fiber foods - such as popcorn, beans, seeds (flax, sunflower, quinoa), multigrain bread, nuts, salad/vegetables, or fresh and dried fruit. 1 Bowel Preparation Instructions for: Miralax-Gatorade Preparations One (1) Day Before Your Colonoscopy Only drink clear liquids the ENTIRE DAY before your colonoscopy. Do NOT eat any solid foods. Drink at least 8 ounces of clear liquids every hour after waking up. The clear liquids you can drink include: Clear Liquid (NO RED LIQUIDS) DO NOT DRINK Gatorade, Pedialyte or Powerade Clear broth or bouillon Coffee or tea (no milk or non-dairy creamer) Carbonated and non-carbonated soft drinks Hesham-Aid or other fruit flavored drinks Strained fruit juices (no pulp) Jell-O, popsicles, hard candy Water Alcohol Milk or non-dairy creamers Noodles or vegetables in soup Juice with pulp Liquid you cannot see through Do not use tobacco/vaping products Mix 1/2 of Miralax bottle (119 grams) in each 32 ounces of Gatorade bottle until dissolved. Keep cool in the refrigerator. DO NOT ADD ICE. The bowel preparation solution will be consumed in two parts. Part 1 5:00 PM - Evening before your colonoscopy Take 4 Dulcolax tablets. 6 PM - Evening before your colonoscopy Drink 32 oz. of the mixed solution. Drink an 8 oz. glass of bowel preparation every 15 minutes for a total of 4 glasses. Fifteen (15) minutes later, drink an 8 oz. glass of of clear liquids every 15 minutes for a total of 2 glasses. You may continue to drink clear liquids till midnight. Part 2 On the day of your colonoscopy you may drink clear liquids up to (three) 3 hours prior to procedure. 4 1/2 hours before your colonoscopy Take another 32 oz. bottle of mixed solution. Drink an 8 oz. glass of bowel prep every 15 minutes for a total of 4 glasses. Fifteen (15) minutes later, drink an 8 oz. glass of clear liquids every 15 minutes for a total of 2 glasses. You may continue to drink clear liquids up to (three) 3 hours before your exam. 2 09/2019 documented in this encounter [facility] Progress note 05-03-2024 Note Date & Type Note Facility 05-03-2024 Note HNO ID: [id number] Author: JOANNA PATEL MD Service: ? Author Type: Physician Type: Progress Notes Filed: 05/03/2024 15:50 Note Text: Claudia is a 44 year old who presents for an annual gynecologic exam without complaints. Menses: cycles every 28-30 days and 7 days of flow. Will occasionally skip a month. 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 History Comments: Sexual Activity: Yes; Male Contraception: Diaphragm PAST MEDICAL HISTORY Diagnosis Date Cystic fibrosis screening 2014 neg antepartum CF screen fracture 5 fractured tibia, playground accident(pt unsure which leg) PAST SURGICAL HISTORY Procedure Laterality Date FISTULECTOMY/FISTULOTOMY SUBMUSCULAR 08/08/2018 anal fistulectomy w/seton drain FISTULECTOMY/FISTULOTOMY SUBMUSCULAR 03/06/2019 FISTULECTOMY/FISTULOTOMY SUBMUSCULAR 05/29/2019 [facility] 1ST INGUN HRNA AGE 4 YRS/> REDUCIBLE 1989 Hernia repair, inguinal, right FAMILY HISTORY Problem Relation Age of Onset Arthritis Mother Hypertension Father Ischemic Heart Disease Father other (borderline DM2) Father No Known Problems Sister No Known Problems Brother Alzheimer's Disease Maternal Grandmother Stroke Maternal Grandfather Arthritis Paternal Grandmother Heart Paternal Grandfather No Known Problems Son No Known Problems Son SOCIAL HISTORY Social History Tobacco Use Smoking status: Never Smokeless tobacco: Never Vaping Use Vaping Use: Never used Substance Use Topics Alcohol use: Yes Alcohol/week: 2.3 standard drinks of alcohol Types: 1 Cans of Beer (12oz), 1 Mixed Drinks per week Comment: 2-3 drinks a week, not while Drug use: No REVIEW OF SYSTEMS Abdomen: No abdominal pain, nausea, vomiting, diarrhea, or constipation. No bloating, early satiety, indigestion, or increased flatulence. Bladder: No dysuria, gross hematuria, urinary frequency, urinary urgency, or incontinence. Breast: No breast lumps, nipple d/c, overlying skin changes, redness or skin retraction. Allergies and current medication updated:Yes EXAM: BP 112/70 Ht 5' 8 (1.73m) Wt 179 lb (81.2kg) LMP 04/29/2024 BMI 27.22 kg/(m2). GENERAL: pleasant, female in no apparent distress BREAST: soft, non-tender, symmetric, no dominant mass, normal nipple-areolar complex, no lymphadenopathy, and no nipple discharge CHEST: Normal inspiratory effort ABDOMEN: soft, non-tender, and no masses PELVIC: external genitalia normal, normal Bartholin's glands, urethra, Cherry Log's glands, no vulvar lesions, no cervical lesions, good vaginal support, physiologic discharge present, normal appearing perineal body and perianal region BIMANUAL: uterus normal size, shape and consistency, no adnexal masses, and non-tender RECTOVAGINAL: deferred. NEURO: alert and oriented x3,exam grossly non-focal EXTREMITIES: normal ASSESSMENT/PLAN: 1) Health maintenance: Pap done with HPV. Mammogram ordered. Nutrition, exercise and routine health maintenance exams reviewed. Calcium/Vitamin D supplementation information provided. Colon cancer screening: colonoscopy ordered 2) Contraception: diaphragm. Contraceptive options reviewed and information provided. 3) Follow up one year or sooner as needed Joanna Patel MD [facility] History of Present illness Narrative 05-03-2024 Joanna Patel MD - 05/03/2024 3:09 PM EDT Note Date & Type Note Facility 05-03-2024 History of Presen t illness Narrative Claudia is a 44 year old who presents for an annual gynecologic exam without complaints. Menses: cycles every 28-30 days and 7 days of flow. Will occasionally skip a month. 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 History Comments: Sexual Activity: Yes; Male Contraception: Diaphragm PAST MEDICAL HISTORY Diagnosis Date Cystic fibrosis screening 2014 neg antepartum CF screen fracture 5 fractured tibia, playground accident(pt unsure which leg) PAST SURGICAL HISTORY Procedure Laterality Date FISTULECTOMY/FISTULOTOMY SUBMUSCULAR 08/08/2018 anal fistulectomy w/seton drain FISTULECTOMY/FISTULOTOMY SUBMUSCULAR 03/06/2019 FISTULECTOMY/FISTULOTOMY SUBMUSCULAR 05/29/2019 RPR 1ST INGUN HRNA AGE 4 YRS/> REDUCIBLE 1989 Hernia repair, inguinal, right FAMILY HISTORY Problem Relation Age of Onset Arthritis Mother Hypertension Father Ischemic Heart Disease Father other (borderline DM2) Father No Known Problems Sister No Known Problems Brother Alzheimer's Disease Maternal Grandmother Stroke Maternal Grandfather Arthritis Paternal Grandmother Heart Paternal Grandfather No Known Problems Son No Known Problems Son SOCIAL HISTORY Social History Tobacco Use Smoking status: Never Smokeless tobacco: Never Vaping Use Vaping Use: Never used Substance Use Topics Alcohol use: Yes Alcohol/week: 2.3 standard drinks of alcohol Types: 1 Cans of Beer (12oz), 1 Mixed Drinks per week Comment: 2-3 drinks a week, not while Drug use: No REVIEW OF SYSTEMS Abdomen: No abdominal pain, nausea, vomiting, diarrhea, or constipation. No bloating, early satiety, indigestion, or increased flatulence. Bladder: No dysuria, gross hematuria, urinary frequency, urinary urgency, or incontinence. Breast: No breast lumps, nipple d/c, overlying skin changes, redness or skin retraction. Allergies and current medication updated:Yes EXAM: BP 112/70 Ht 5' 8 (1.73m) Wt 179 lb (81.2kg) LMP 04/29/2024 BMI 27.22 kg/(m^2). GENERAL: pleasant, female in no apparent distress BREAST: soft, non-tender, symmetric, no dominant mass, normal nipple-areolar complex, no lymphadenopathy, and no nipple discharge CHEST: Normal inspiratory effort ABDOMEN: soft, non-tender, and no masses PELVIC: external genitalia normal, normal Bartholin's glands, urethra, Cherry Log's glands, no vulvar lesions, no cervical lesions, good vaginal support, physiologic discharge present, normal appearing perineal body and perianal region BIMANUAL: uterus normal size, shape and consistency, no adnexal masses, and non-tender RECTOVAGINAL: deferred. NEURO: alert and oriented x3,exam grossly non-focal EXTREMITIES: normal ASSESSMENT/PLAN: 1) Health maintenance: Pap done with HPV. Mammogram ordered. Nutrition, exercise and routine health maintenance exams reviewed. Calcium/Vitamin D supplementation information provided. Colon cancer screening: colonoscopy ordered 2) Contraception: diaphragm. Contraceptive options reviewed and information provided. 3) Follow up one year or sooner as needed Joanna Patel MD documented in this encounter [facility] Evaluation + Plan note Note Date & Type Note Facility Evaluation + Plan note No data available for this section [facility] Evaluation note Note Date & Type Note Facility Evaluation note Diagnosis Encounter for gynecological examination (general) (routine) without abnormal findings- Primary Screening for cervical cancer Screening for malignant neoplasm of the cervix Encounter for screening for human papillomavirus (HPV) Special screening examination for human papillomavirus (HPV) Encounter for screening mammogram for breast cancer Colon cancer screening Special screening for malignant neoplasms, colon documented in this encounter [facility] Discharge instructions Note Date & Type Note Facility Hospital Discharge instructions No data available for this section [facility] Progress note Note Date & Type Note Facility Progress note No data available for this section [facility] Reason for referral (narrative) Outpatient Procedure (Routine) - New Request Note Date & Type Note Facility Reason for referral (narrati ve) Specialty Diagnoses / Procedures Referred By Megha gonsales Referred To Contact [facility] Diagnoses Colon cancer screening Procedures COLONOSCOPY SCREENING COLONOSCOPY FLX DX W/COLLJ SPEC WHEN PFRMD Joanna Patel MD [address] [place] [address] [facility] [address] [place] [address] Referral ID Status Reason Start Date Expiration Date Visits Requested Visits Authorized [id number] New Request Auto-Generat ed Referral 05/03/2024 05/03/2025 1 1 * Diagnostic Procedure Only (Routine) - New Request Specialty Diagnoses / Procedures Referred By Megha gonsales Referred To Contact [facility] Diagnoses Encounter for gynecological examination (general) (routine) without abnormal findings Encounter for screening mammogram for breast cancer Procedures POOJA SCREENING W MADHURI SCREENING DIGITAL BREAST TOMOSYNTHESIS BI SCREENING MAMMOGRAPHY BI 2-VIEW BREAST INC CAD Joanna Patel MD [address] [place] [address] [facility] [address] [place] [address] Referral ID Status Reason Start Date Expiration Date Visits Requested Visits Authorized [id number] New Request Auto-Generat ed Referral 05/03/2024 06/02/2025 1 1 [facility] Summary Purpose Family History No Family History Records FoundNo Family History Records Found No data available for this section No Family History Records FoundNo Family History Records Found Advance Directives No Advanced Directives Records FoundNo Advanced Directives Records FoundNo Advanced Directives Records FoundNo Advanced Directives Records Found Additional Source Comments INFORMATION SOURCE (unrecogn ized section and content) DATE CREATED AUTHOR 05/30/2019 [facility] DATE CREATED AUTHOR AUTHOR'S ORGANIZ ATION 05/20/2024 [facility] DATE CREATED AUTHOR AUTHOR'S ORGANIZ ATION 03/01/2025 [facility] DATE CREATED AUTHOR AUTHOR'S ORGANIZ ATION 04/11/2025 [facility] Source Comments (unrecognize d section and content) In the event this informatio n is protected by the Federal Confidentiality of Alcohol and Drug Abuse Patient Records regulations: The Federal rules restrict any use of the information to criminally investigate or prosecute any alcohol or drug abuse patient.[facility] Reason for Visit (unrecogniz ed section and content) Reason Comments Yearly Exam Patient Care team informatio n (unrecognized section and content) Care Team Personnel Name: DR. JOANNA PATEL Member Role: Primary Care Physician Address: [address] [place] [id number] Telecom: Care Team Related Persons Name: QUEENIE REYNOSO FOR RECORDS PERTAINING TO PATIENTS WHO ARE OR HAVE BEEN ENROLLED IN A CHEMICAL DEPENDENCY/SUBSTANCEABUSE PROGRAM, SOME INFORMATION MAY BE OMITTED. This clinical summary was aggregated from multiple sources. Caution should be exercised in using it in the provision of clinical care. This summary normalizes information from multiple sources, and as a consequence, information in this document may materially change the coding, format and clinical context of patient data. In addition, data may be omitted in some cases. CLINICAL DECISIONS SHOULD BE BASED ON THE PRIMARY CLINICAL RECORDS. [employer] [facility]. provides no warranty or guarantee of the accuracy or completeness of information in this document.
[2025-04-15] MEDS: Lactated Ringers 1,000 ML 15 ML IV (07:59)
--- NOTE | 2025-04-15 08:02 | PRE.ANES_ITS ---
ASA Classification* ASA Classification ASA Classification: 3 Assessment & Plan Anesthesia* Anesthesia Assessment Anesthesia Assessment: Discussed sedation and/or anesthesia options, risks, benefits, and alternatives with patient/parents/legal guardian/POA. Questions invited. The patient/parents/legal guardian/POA seems to understand and agrees to proceed with anesthesia plan. Reviewed the physical assessment, medical history, allergy history and patient home medications list prior to surgery/procedure/anesthetic and documented any changes. Performed airway and anesthesia risk assessments. Anesthesia Type Anesthesia Type: MAC History Source History Obtained from:: Patient and Chart Anesthesia Focused Assessment* Temperature: 98.7 F Pulse Rate: 88 Blood Pressure: 132/73 Respiratory Rate: 16 Pulse Ox: 99 Oxygen Delivery Method: Room Air Airway Assessment Mouth opens: >3 cm Mallampati Score: I Teeth Condition: Intact Labs Anesthesia Preop lab: CBC WBC 9.1 K/mm3 (4.4-11.0) 06/15/20 05:50 06/15/20 RBC 2.88 M/mm3 (4.2-5.4) L 06/15/20 05:50 06/15/20 Hgb 9.0 g/dL (12.0-15.0) L 06/15/20 05:50 06/15/20 Hct 26.6 % (37-47) L 06/15/20 05:50 06/15/20 Plt Count 112 K/mm3 (150-450) L 06/15/20 05:50 06/15/20 CHEMISTRY COAG Urine Test Negative Negative 04/15/25 07:35 04/15/25 Pre-Assessment Diagnosis/Proposed Procedure Planned Operative Procedure(s): CSCOPE Anesthesia History 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 When Was Last Pacemaker Check QUESTION #4 FULL TEXT: You/Your Family Experience fever (hyperthermia) with Anesthesia Last Oral Intake Last Oral intake: Last Oral Intake NPO since 22:00 04/15/25 07:48 Meds taken in AM with sips of water? Meds patient instructed to take am of surgery PONV PONV - electroencephalograph technician: PONV - electroencephalograph technician Female Yes 04/10/25 13:26 HX of Motion Sickness Yes 04/10/25 13:26 HX of N/V After Surgery No 04/10/25 13:26 Non-Smoker Yes 04/10/25 13:26 Duration of Surgery greater No 04/10/25 13:26 than 60 minutes Number of Risk Factors 3 04/10/25 13:26 PONV Score Moderate Risk 04/10/25 13:26 Height & Weight Height & Weight: Anesthesia: Height & Weight Height 5 ft 8 in 04/15/25 07:48 Weight: 79 kg 04/15/25 07:48 Body Mass Index (BMI) 26.4 04/15/25 07:48 Respiratory Assessment Respiratory Assessment - electroencephalograph technician: Respiratory Tract Infection Hx - electroencephalograph technician Hx Respiratory Tract Infection No 04/10/25 13:26 STOP Sleep Apnea STOP Sleep Apnea - electroencephalograph technician: STOP Sleep Apnea - electroencephalograph technician Hx Hypertension No 04/10/25 13:26 Hx Sleep Apnea No 04/10/25 13:26 CPAP BIPAP Do you snore loudly (louder No 04/10/25 13:26 than talking or can be heard Do you often feel tired/ No 04/10/25 13:26 fatigued/ sleepy during daytime? Has anyone observed you stop No 04/10/25 13:26 breathing during sleep? STOP Results Negative 04/10/25 13:26 QUESTION #5 FULL TEXT : Do you snore loudly (louder than talking or can be heard through closed doors)? 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 Specify any problems Hx of Preganancy in last 3 N/A 04/10/25 13:26 Months Nurse Filling Out Transfusion NBUCHER 04/10/25 13:26 & Questions: Date: 04/10/25 04/10/25 13:26 Time: 13:04/10/25 13:26 Patient unable to answer at this time (ie. confused, unrespo /Reproduction History /Reproductive History - electroencephalograph technician: /Reproductive Hx- electroencephalograph technician Hx Now No 04/10/25 13:26 Gestational Age (in weeks): EDC: Hx Hx Para Hx Section SAB Active Medications Active Medications: Current Medications Generic Name Dose Route Start Last Admin Trade Name Freq PRN Reason Stop Dose Admin Lactated Ringer's 1,000 mls @ 15 mls/hr 04/15/25 07:45 04/15/25 07:59 IV 15 mls/hr .Q48H CHARY Administration PFSH Medical History Wears glasses Non-smoker Home Medications ?Medication ?Instructions ?Recorded ?Last Taken ?Type NK 04/10/25 Unknown History Allergy/AdvReac Type Severity Reaction Status Date / Time No Known Allergies Allergy Verified 04/15/25 07:48 Family History no significant family his no significant family history Surgical History History of hernia repair History of anal fistulotomy Social History Smoking Status: Never smoker Review of Systems (Anesthesia) ROS Narrative System reviewed and no additional complaints, except as documented. Physical Exam Const alert, oriented x3 and average body habitus HEENT dentition normal Neck full ROM Resp normal respiratory effort, normal air movement and clear to auscultation bilaterally Cardio regular rate and regular rhythm Back/Spine normal ROM Extremity full ROM
[2025-04-15 08:03] LABS: Internal QC Validated? YES +Cl - CLEAR BKGD; Pregnancy, Urine Negative Negative; Record Kit Lot#,Urine Preg 0000947241
--- NOTE | 2025-04-15 08:27 | HP.PCM_ITS ---
HPI - General HPI Narrative MARTIN REYNOSO, is a 45 F who presents for screening colonoscopy. She has never had a colonoscopy in the past. She denies abdominal pain or blood in the stool. She denies family history of colon cancer. PFSH Medical History Wears glasses Non-smoker Home Medications ?Medication ?Instructions ?Recorded ?Last Taken ?Type NK 04/10/25 Unknown History Allergy/AdvReac Type Severity Reaction Status Date / Time No Known Allergies Allergy Verified 04/15/25 07:48 Family History no significant family his Surgical History History of hernia repair History of anal fistulotomy Social History Smoking Status: Never smoker Past Medical/Surgical History Planned Operation Planned Operative Procedure(s): CSCOPE Previous Hospitalizations/Surgeries HX Hospitalizations: No Any Problems With Anesthesia: No You/Your Family Experience Fever (Hyperthermia) With Anes: No Cholinesterase deficiency: No Cardiovascular Hx Hypertension: No Respiratory Hx Sleep Apnea: No Hx Respiratory Tract Infection/Cold (presently): No Do You Snore Loudly (louder than talking or can be heard): No Do You Often Feel Tired/ Fatigued/ Sleepy Dring Daytime?: No Has Anyone Observed You Stop Breathing During Sleep?: No Result (for STOP score): Negative Hx Smoking: No Smoking Status: Never smoker Neurological Does patient have nerve stimulator: No Reproduction : No Miscellaneous Recent Exposure to Contagious Disease: No Allergies No Known Allergies Allergy (Verified 04/15/25 07:48) Discharge Is Pt Admitted From a Retirement, or a Care Home: No After D/C, Where Do you Plan to Go: Return Home Vital Signs Vital Signs Vital Signs: 04/15/25 07:48 04/15/25 07:48 04/15/25 08:03 Temperature 98.7 F 98.7 F Temperature Source Temporal Pulse Rate 88 88 Respiratory Rate 16 16 Respiratory Pattern Normal Blood Pressure 132/73 H 132/73 H Blood Pressure Mean 92 Blood Pressure Source Monitor Blood Pressure Position Semi-Fowlers Blood Pressure Location Right Arm Pulse Ox 99 99 Oxygen Delivery Method Room Air Room Air Weight Weight: 174 lb 2.643 oz Body Mass Index (BMI) 26.4 Physical Exam Const alert and oriented x3 HEENT normocephalic Eyes PERRL Resp normal respiratory effort and normal air movement Cardio regular rate and regular rhythm GI soft to palpation, non-tender and non-distended Extremity normal to inspection Assessment & Plan Assessment/Plan (1) Encounter for screening for malignant neoplasm of colon: PLAN: I explained endoscopy in detail to the patient. I explained the risks including but not limited to stroke or heart attack with anesthesia, perforation of the GI tract, bleeding, infection. I explained that any of these could necessitate further emergency surgery. The patient understands and all questions were answered sufficiently. The patient wishes to proceed with procedure. Hubert Villarreal MD Pager: [facility] [address] [place] [address], [address] [place] [address] Office: Surgery Risks - Colonoscopy Risks Include but are not Limited To: Risks include but are not limited to: Bleeding, perforation requiring further surgery, inability to complete colonoscopy requiring barium enema.
--- NOTE | 2025-04-15 08:50 | OP.CCLET_ITS ---
04/15/2025 No Primary Care Physician Re : Colonoscopy procedure for Claudia Curry Dear Care Physician This procedure was performed on Tuesday, April 15, 2025. My impressions and recommendations are as follows: Impressions : - The entire examined colon is normal on direct and retroflexion views. - No specimens collected. Recommendations : - Discharge patient to home. - Resume previous diet. - Continue present medications. - Repeat colonoscopy in 10 years for screening purposes. My findings are described in the full procedure note, which is enclosed. If I can be of further assistance, please feel free to contact me at Doctor phone number(s): , Work: . Sincerely, Hubert Villarreal MD 04/15/2025 8:50:15 AM This report has been signed electronically.
--- NOTE | 2025-04-15 08:50 | OP.COLON_ITS ---
Patient Name: Claudia Curry Procedure Date: 04/15/2025 8:28 AM Date of : 1980 Age: 45 Procedure: Colonoscopy Indications: Screening for colorectal malignant neoplasm Providers: Hubert Villarreal MD Referring MD: No Primary Care Physician Medicines: Propofol per Anesthesia Patient Profile: This is a 45 year old female. Refer to note in patient chart for documentation of history and physical. Last Colonoscopy: none. The patient's first colonoscopy is today. Complications: No immediate complications. Procedure: Pre-Anesthesia Assessment: - Prior to the procedure, a History and Physical was performed, and patient medications and allergies were reviewed. The patient's tolerance of previous anesthesia was also reviewed. The risks and benefits of the procedure and the sedation options and risks were discussed with the patient. All questions were answered, and informed consent was obtained. Prior Anticoagulants: The patient has taken no anticoagulant or antiplatelet agents. After reviewing the risks and benefits, the patient was deemed in satisfactory condition to undergo the procedure. After I obtained informed consent, the scope was passed under direct vision. Throughout the procedure, the patient's blood pressure, pulse, and oxygen saturations were monitored continuously. The Colonoscope was introduced through the anus and advanced to the cecum, identified by appendiceal orifice and ileocecal valve. The colonoscopy was performed without difficulty. The patient tolerated the procedure well. The quality of the bowel preparation was good. The ileocecal valve, appendiceal orifice, and rectum were photographed. Scope In: 8:39:01 AM Scope Withdrawal Time 0 hours 6 minutes 31 seconds Scope Out: 8:48:14 AM Total Procedure Duration Time 0 hours 9 minutes 13 seconds Findings: The entire examined colon appeared normal on direct and retroflexion views. Impression: - The entire examined colon is normal on direct and retroflexion views. - No specimens collected. Recommendation: - Discharge patient to home. - Resume previous diet. - Continue present medications. - Repeat colonoscopy in 10 years for screening purposes. Procedure Code(s): --- Professional --- 94391, Colonoscopy, flexible; diagnostic, including collection of specimen(s) by brushing or washing, when performed (separate procedure) Diagnosis Code(s): --- Professional --- Z12.11, Encounter for screening for malignant neoplasm of colon CPT copyright 2021 [employer]. All rights reserved. The codes documented in this report are preliminary and upon food and nutrition services supervisor review may be revised to meet current compliance requirements. Hubert Villarreal MD 04/15/2025 8:50:15 AM This report has been signed electronically. Number of Addenda: 0 Note Initiated On: 04/15/2025 8:28 AM
--- NOTE | 2025-04-15 08:56 | PCM.POST.ANE ---
Anesthesia: Postop Eval I Current Vital Signs Temperature: 98.3 F Pulse Rate: 57 Blood Pressure: 102/62 Respiratory Rate: 16 Pulse Ox: 99 Oxygen Delivery Method: Room Air Assessment Airway patent: Yes Spontaneous unlabored respirations: Yes Mental status: Asleep nausea: No Vomiting: No Anesthesia Complication: No Fluid Hydration Crystalloid volume administer (ml): 400 Total IV fluid infused: 400 Progress Note Anesthesia document: Postop Eval 1 completed: Yes
--- NOTE | 2025-04-15 09:18 | PCM.POSTANE2 ---
Anesthesia Postop Eval I Sum Postop Eval Completion status Anesthesia document: Postop Eval 1 completed: Yes Anesthesia Postop Eval I Summary Anesthesia Postop Eval I Summary: Anesthesia Postop Eval I: Assessment Summary Airway patent Yes 04/15/25 08:56 [email or web address] Spontaneous unlabored Yes 04/15/25 08:56 [email or web address] respirations Mental status Asleep 04/15/25 08:56 [email or web address] nausea No 04/15/25 08:56 [email or web address] Vomiting No 04/15/25 08:56 [email or web address] Anesthesia Postop Eval I: Fluid Summary Crystalloid volume administer 400 04/15/25 08:56 [email or web address] (ml) Colloids volume administered ( ml) Blood Product volume administered (ml) Total IV fluid infused 400 04/15/25 08:56 [email or web address] Anesthesia Postop Eval I: Summary Notes Anesthesia Complication No 04/15/25 08:56 [email or web address] Anesthesia Complication Comment: Post-operative progress note Anesthesia: Postop Eval II Evaluation Mental status: Awake and Calm Pain Level: 3 nausea: No Vomiting: No Complications Anesthesia Complication: No
== END 2025-04-15 09:31 | disposition home or self-care (01) ==
LOC: EN 07:29 → AC 07:33
PROVIDERS: Anesthesiology; Visit Provider Surgery
PROC: 0DJD8ZZ Inspection of Lower Intestinal Tract, Via Natural or Artificial Opening Endoscopic (ICD-10-PCS; CPT 45378; principal; 2025-04-15 08:25)
DX: Z12.11 Encounter for screening for malignant neoplasm of colon (principal)
CPT/HCPCS: 45378; 81025; J2405